=== PATIENT | male | born 1960 | race Caucasian/White ===

== ENCOUNTER → 2016-08-03 | Outpatient (CLI) | payer OTHER ==
[~2016-08-03] MED LIST: ASPI81TA28 PO; CLON0.5T3 PO; DIVA500T59 PO; LEVO150T9 PO; PRLSR20 PO; ZYP20 PO
[2016-08-03 13:18] VITALS: BP 128/87; PULSE 100; TEMP 36.9; O2SAT 96
--- NOTE | 2016-08-03 14:03 | Radiation Oncology Follow-Up ---
Radiation Oncology Follow-Up Date of Visit Aug 03, 2016. (Margo Felipe PA-C) Reason For Visit Six-month follow-up (Margo Felipe PA-C) Radiation Completion Date finished 12-25-2015 (aMrgo Felipe PA-C) Diagnosis (1) Cancer of lower lobe of left lung Status: Resolved Onset Date: 10/21/2015 Histology Subtype: adenocarcinoma Stage: lll (B) Permanent Comment: STAGING: Lung, left lower lobe, adenocarcinoma, [id number], stage IIIB Status post abdominal aortic aneurysm repair follow-up CAT scan 09/29/2015 revealing a lung nodule Status post bronchoscopy and biopsy 10/21/2015 Adenocarcinoma Status post completion of combined radiation and chemotherapy Radiation completed 12/25/2015 received 6000 cGy Last Edited By: Margo Felipe on Jan 04, 2016 15:39 (Margo Felipe PA-C) History of Present Illness Mr. Villela is a 55-year-old gentleman with a previous smoking history who recently underwent a routine imaging study for his abdominal AAA aneurysm. He had a CT scan completed on 09/25/2015 which did show a partially visualized lobulated left lower lobe mass measuring 2.6 cm concerning for malignancy. He subsequently underwent a dedicated CT thorax completed on 10/07/2015 which revealed a 3.1 cm mass in the left lower lobe adjacent to the hilum. Additionally, there was some mediastinal lymphadenopathy and left hilar adenopathy as well. The patient had a PET/CT scan on 10/13/2015 which again confirmed a 3.2 cm mass in the left lower lobe with maximum SUV of 13.5. Additionally, there were multiple bilateral mediastinal and hilar FDG avid lymph nodes with an SUV max of up to 7.1. Otherwise, there was no evidence of any distant metastatic disease. The patient was referred to Dr. Walters who performed a bronchoscopy on 10/21/2015 which revealed paratracheal adenopathy only. Dr. Walters did sample multiple lymph node stations including 4L/4R which came back consistent with adenocarcinoma of the lung. The patient was then referred to Dr. Trav Han for consideration of treatment. Dr. Han has recommended concurrent carboplatin/Taxol chemotherapy and radiation therapy. We are now seeing the patient in consultation. Currently, the patient is doing relatively well overall. He denies any hemoptysis, fevers, chills or night sweats. He states his energy and appetite and weight are all stable. He has no other complaints at this time. Decision was to treat with combined radiation and chemotherapy. Radiation completed 12/25/2015 received 6000 cGy. (Margo Felipe PA-C) Interim History He is been doing well over this past 6 months. He feels his respiratory status is stable. He is trying to exercise to improve his stamina. He is walking at least twice a week. He walks approximately 1/2 mile. He denies any discomfort of the chest. He has no difficulty with swallowing. His appetite is good and his weight is stable. He is followed closely by Dr. Han. He had a recheck PET scan 05/18/2016. This showed increase in extent of left perihilar consolidation with a new area of consolidation along the medial superior right lower lobe with mild metabolic activity. This is favored to represent post radiation changes. No FDG avid mediastinal lymph nodes. Previously noted focal uptake in the mid esophagus and in the proximal anterior abdominal aorta have resolved. He denies any difficulty with cough and congestion. (Margo Felipe PA-C) Allergies Coded Allergies: Ezetimibe (Verified Allergy, Mild, Unknown , 10/29/15) Simvastatin (Verified Allergy, Mild, Unknown , 10/29/15) Home Medications Scheduled Aspirin (Aspirin Ec), 81 MG PO DAILY Clonazepam (Klonopin), 0.5 MG PO DAILY Divalproex Sodium (Depakote), 1 TAB PO HS Divalproex Sodium (Depakote), 250 MG PO DAILY Levothyroxine Sodium (Levothyroxine Sodium), 1 TAB PO DAILY Olanzapine (Zyprexa), 20 MG PO HS Omeprazole (Prilosec), 20 MG PO DAILY Review of Systems Gastrointestinal: Symptoms: WNL Oral: Symptoms: No Problems Other Oral Symptoms: " burning in the esophagus " Respiratory: Symptoms: Moist Cough, SOB With Exertion Respiratory Comments: OCC DRY COUGH, DENIES SOB Other Respiratory: " I quit smoking " Urinary: Symptoms: WNL Skin: Symptoms: No Problems (Margo Felipe PA-C) Physical Exam Vital Signs Date Time Temp Pulse Resp B/P (MAP) Pulse Ox O2 Delivery O2 Flow Rate FiO2 08/03/16 13:18 36.9 100 20 128/87 96 Pain: Side: Bilateral Patient Pain Scale: 0 - 10 Initial Pain Intensity: 0.0 Fatigue: None General Appearance: no apparent distress Eyes: normal inspection, EOMI ENT: normal ENT inspection, hearing grossly normal Neck: no adenopathy, thyroid normal Respiratory/Chest: lungs clear, no respiratory distress, no accessory muscle use Cardiovascular: regular rate, rhythm, no gallop, no murmur Extremities: no pedal edema Neurologic/Psychiatric: no motor/sensory deficits, alert, normal mood/affect Skin: warm/dry (Margo Felipe PA-C) Additional Studies PET scan as reviewed above. Performed on 05/18/2016. (Margo Felipe PA-C) Assessment & Plan Plan: Patient was seen and examined by Dr. Mcknight. He will continue his current exercise program. He'll be following up with Dr. Damian in September. Recheck scanning per Dr. Han. We asked him to return to our office in February 2017. He may call if he has any questions or concerns in the interim. (Margo Felipe PA-C) I agree with note created by Margo Felipe PA-C. I reviewed the patient's chart and information with her. I have examined and evaluated the patient. I reviewed relevant clinical information and answered the patient's and/or family' s questions. (Veeral. Mcknight MD) Total Time In Follow-Up I spent 20 minutes speaking to the patient and performing examination. I spent 15 minutes reviewing information in completing this note. (Margo Felipe PA-C) I spent 15 minutes examining and counseling the patient. (Veeral. Mcknight MD) Copy To Michelet Walters M.D.; Ben Watkins D.O.; Trav Han M.D.
== END | disposition home or self-care (01) ==
LOC: C.ONC 13:08
PROVIDERS: ATTEND Physician Assistant Medical
DX: Z08 Encounter for follow-up examination after completed treatment for malignant neoplasm (principal); Z92.3 Personal history of irradiation; Z85.118 Personal history of other malignant neoplasm of bronchus and lung

== ENCOUNTER → 2017-03-08 | Outpatient (CLI) | payer OTHER ==
[2016-08-03 13:18] VITALS: BP 128/87; PULSE 100
[2017-03-08 12:59] VITALS: BP 117/82; PULSE 103; TEMP 36.9; O2SAT 95
--- NOTE | 2017-03-08 17:17 | Radiation Oncology Follow-Up ---
Radiation Oncology Follow-Up Date of Visit Mar 08, 2017. Reason For Visit 6 month follow-up Radiation Completion Date 12/25/15 Diagnosis (1) Cancer of lower lobe of left lung Status: Chronic Onset Date: 10/21/2015 Permanent Comment: STAGING: Lung, left lower lobe, adenocarcinoma, [id number], stage IIIB Status post abdominal aortic aneurysm repair follow-up CAT scan 09/29/2015 revealing a lung nodule Status post bronchoscopy and biopsy 10/21/2015 Adenocarcinoma Status post completion of combined radiation and chemotherapy Radiation completed 12/25/2015 received 6000 cGy Suspicion of recurrence in the left perihilar area Status post palliative chemotherapy with Taxol and carboplatin Last Edited By: Margo Felipe on Mar 08, 2017 17:11 History of Present Illness Mr. Villela has a previous smoking history who recently underwent a routine imaging study for his abdominal AAA aneurysm. He had a CT scan completed on which did show a partially visualized lobulated left lower lobe mass measuring 2.6 cm concerning for malignancy. He subsequently underwent a dedicated CT thorax completed on 10/07/2015 which revealed a 3.1 cm mass in the left lower lobe adjacent to the hilum. Additionally, there was some mediastinal lymphadenopathy and left hilar adenopathy as well. The patient had a PET/CT scan on 10/13/2015 which again confirmed a 3.2 cm mass in the left lower lobe with maximum SUV of 13.5. Additionally, there were multiple bilateral mediastinal and hilar FDG avid lymph nodes with an SUV max of up to 7.1. Otherwise, there was no evidence of any distant metastatic disease. The patient was referred to Dr. Walters who performed a bronchoscopy on 10/21/2015 which revealed paratracheal adenopathy only. Dr. Walters did sample multiple lymph node stations including 4L/4R which came back consistent with adenocarcinoma of the lung. The patient was then referred to Dr. Trav Han for consideration of treatment. Dr. Han has recommended concurrent carboplatin/Taxol chemotherapy and radiation therapy. We are now seeing the patient in consultation. Currently, the patient is doing relatively well overall. He denies any hemoptysis, fevers, chills or night sweats. He states his energy and appetite and weight are all stable. He has no other complaints at this time. Decision was to treat with combined radiation and chemotherapy. Radiation completed 12/25/2015 received 6000 cGy. Interim History He denies any difficulty with his respiratory status. No problems with shortness of breath or cough. He denies dysphagia. Following the completion of the combined radiation and chemotherapy he had a recheck scan which revealed possible progression in the left perihilar region. He then underwent palliative chemotherapy with Taxol and carboplatin. This was given every 3 weeks. He tolerated this well. His only residual outcome is alopecia. He has had no issues with nausea or vomiting. There is been no problems with neuropathy. He had a recheck CT scan this past Monday. The results are currently pending. Allergies Coded Allergies: Ezetimibe (Verified Allergy, Mild, Unknown , 10/29/15) Simvastatin (Verified Allergy, Mild, Unknown , 10/29/15) Home Medications Scheduled Aspirin (Aspirin Ec), 81 MG PO DAILY Clonazepam (Klonopin), 0.5 MG PO DAILY Divalproex Sodium (Depakote), 1 TAB PO HS Divalproex Sodium (Depakote), 250 MG PO DAILY Levothyroxine Sodium (Levothyroxine Sodium), 1 TAB PO DAILY Olanzapine (Zyprexa), 20 MG PO HS Omeprazole (Prilosec), 20 MG PO DAILY Review of Systems Gastrointestinal: Symptoms: WNL Oral: Symptoms: No Problems Other Oral Symptoms: " burning in the esophagus " Respiratory: Symptoms: WNL Respiratory Comments: OCC DRY COUGH, DENIES SOB Other Respiratory: " I quit smoking " Urinary: Symptoms: WNL Skin: Symptoms: No Problems Physical Exam Vital Signs Date Time Temp Pulse Resp B/P (MAP) Pulse Ox O2 Delivery O2 Flow Rate FiO2 03/08/17 12:59 36.9 103 16 117/82 95 Fatigue: None General Appearance: no apparent distress, + pertinent finding (alopecia) Eyes: normal inspection, EOMI ENT: normal ENT inspection, hearing grossly normal Neck: no adenopathy, thyroid normal Respiratory/Chest: no respiratory distress, no accessory muscle use, + decreased breath sounds, + wheezing (very mild wheeze in left lung field.) Cardiovascular: regular rate, rhythm, no gallop, no murmur Neurologic/Psychiatric: no motor/sensory deficits, alert, normal mood/affect Skin: warm/dry Pain Management Patient Reports Pain: No Side: Bilateral Patient Preferred Pain Scale: 0 - 10 Initial Pain Intensity: 0.0 Pain Management Plan He denies pain therefore requires no pain management. Laboratory Laboratory Results: not applicable Pathology Pathology Results: not applicable Imaging Imaging Studies: pending Assessment & Plan Plan: He was seen and examined by Dr. Mcknight. We will obtain a copy of the CT results when complete. Continue follow-up with medical oncology. We asked him to return to our office in 1 year. He may call if he has any questions or concerns in the interim. Assessment & Plan (Attending) ADDENDUM: I agree with note created by Margo Felipe PA-C. I reviewed the patient's chart and information with her. I have examined and evaluated the patient. I reviewed relevant clinical information and answered the patient's and /or family's questions. COMMUNITY HEALTH NURSE SUPERVISOR Total Time In Follow-Up I spent 20 minutes speaking to the patient performing examination. I spent 15 minutes reviewing the information and completing this note. Total Time (Attending) In Follow-Up I spent 15 minutes examining and counseling the patient. COMMUNITY HEALTH NURSE SUPERVISOR Copy To Michelet Walters M.D.; Hali Schulte MD; Ben Watkins D.O.
== END | disposition home or self-care (01) ==
LOC: C.ONC 12:34
PROVIDERS: ATTEND Physician Assistant Medical
DX: Z08 Encounter for follow-up examination after completed treatment for malignant neoplasm (principal); Z92.3 Personal history of irradiation; Z85.118 Personal history of other malignant neoplasm of bronchus and lung

== ENCOUNTER 2017-04-04 07:49 | Day surgery (SDC) | payer OTHER ==
[2017-04-03 08:54] VITALS: BMI 37.0
--- NOTE | 2017-04-03 09:26 | PAT Medication Instructions ---
Service Date Apr 03, 2017. Current Home Medication List Aspirin (Aspirin Ec), 81 MG PO QAM Clonazepam (Klonopin), 0.5 MG PO QAM Divalproex Sodium (Depakote), 500 MG PO HS Divalproex Sodium (Depakote), 250 MG PO QAM Levothyroxine Sodium (Levothyroxine Sodium), 1 TAB PO QAM Olanzapine (Zyprexa), 20 MG PO HS Omeprazole (Prilosec), 20 MG PO HS Medication Instructions For Your Scheduled Surgery - Hold the following medications per your surgeon's instructions: Aspirin (Aspirin Ec), 81 MG PO QAM - Take the following medications the morning of surgery with a sip of water: Levothyroxine Sodium (Levothyroxine Sodium), 1 TAB PO QAM Divalproex Sodium (Depakote), 250 MG PO QAM Clonazepam (Klonopin), 0.5 MG PO QAM - Take the following medications as scheduled the night before surgery: Olanzapine (Zyprexa), 20 MG PO HS Omeprazole (Prilosec), 20 MG PO HS Divalproex Sodium (Depakote), 500 MG PO HS If you have any questions please call us at [phone] or [phone] or [phone]
[2017-04-03 11:18] LABS: PTT PATIENT 34.5 SECONDS (21.0-31.0)
[~2017-04-04] VITALS: Ht 180.3 cm; Wt 122.0 kg
[~2017-04-04 07:49] MED LIST changes: +ATROPINE SULFATE 0.1 MG/ML 5ML SYR IV PRN; +EpHEDrine SULFATE INJ 50 MG/ML AMP IV PRN; +FENTANYL CITRATE INJ 50 MCG/1 ML 2 ML VIAL IV PRN; +HYDROmorphone INJ 1 MG/ML SYR IV PRN; +LABETALOL HCL IV 5 MG/ML 20ML IV PRN; +LACTATED RINGER'S 1000ML 1,000 ML IV SCH; +ONDANSETRON INJ 2 MG/ML 2 ML VIAL IV PRN; +PHENYLEPHRINE 100MCG/ML 5ML SYR IV PRN; +PROMETHAZINE HCL INJ 12.5 MG in SODIUM CHLORIDE 0.9% 50ML 50 ML IV PRN
--- NOTE | 2017-04-04 08:41 | History and Physical ---
History & Physical Date of Service Apr 04, 2017. History & Physical 56-yo male presents with history of NSCLCA IIIB present with a hilar PET avid mass. Images personally reviewed by myself and Dr. Whiting. Options discussed with the patient and his sister and recommend moving forward with bronchoscopy + EBUS for further diagnostics. Patient expressed understanding and is agreeable. History of Present Illness 56-year-old male presents the office for new patient evaluation with the question of recurrent left lower lobe lung cancer. Prior records reviewed. PMHx includes: History of bus-xsknk-lyod lung carcinoma stage IIIB, CKD 3, hypothyroid, AAA status post repair, history of schizoaffective disorder, GERD, and allergic rhinitis. He is a former smoker smoking 1-3 packs per day for approximately 35 years quit in the summer of 2016. 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 X1 episode of inhalation of asbestos. Patient denies any history of childhood asthma or allergies. He denies any history of pneumonia, frequent hospitalization for respiratory failure, history of DVT or DVT. He states that he was diagnosed with asthma many years ago. Although he states he has never been on any inhalers in the past and is unsure of any chronic symptoms. He denies any symptoms of daily shortness of breath wheeze chest pain or pleuritic pain. Patient underwent FNA 4R, 4L with Dr. Walters is in the summer of 2015 after LLL mass found incidentailly on CTA for AAA. Tissue consistent with adenocarconima, EGFR negative. He initially followed with Dr Adams and underwent chemotherapy x 2 (carboplatin + taxol - last 12/2016) and radiation (end 11/2015). PET-CT 02/08/2017: Volume loss with traction bronchiectasis and small opacity in the paramediastinal right upper lobe with consolidation in the left lower lobe compatible with radiation fibrosis. There is persistent focal metabolic activity within the left lower lobe -per report. CT chest 03/09/2017: Left infrahilar extension of mass roughly measuring 3.7 x 3.1 centimeter correlating with increased metabolic activity on prior PET-CT. Small left pleural effusion-new since 02/08/2017: Post radiation changes in the paramediastinal soft tissues. Following above imaging, he was referred by his new oncologist to our office for further diagnostics. On exam/interview today he denies any symptoms of dyspnea, chest pain, or wheeze. He states his weight has been fluctuant. He does report chronic daily cough present for approximately 1 year without any productivity or hemoptysis. He states occasionally he will feel as though food gets stuck in his throat however since beginning a proton pump inhibitor this it has improved significantly. Review of Systems Constitutional: recent weight gain and recent weight loss, but no fever, not feeling poorly, no chills and not feeling tired. ENT: negative. Cardiovascular: no chest pain and no palpitations. Respiratory: cough and shortness of breath during exertion, but as noted in HPI , no shortness of breath, no orthopnea and no wheezing. Gastrointestinal: heartburn, but as noted in HPI. Integumentary: negative. Hematologic/Lymphatic: negative, no tendency for easy bleeding and no tendency for easy bruising. Active Problems 1. Allergic rhinitis 2. Chronic kidney disease, stage 3 3. History of Current tobacco use 4. GERD (gastroesophageal reflux disease) 5. H/O abdominal aortic aneurysm 6. Hyperlipidemia 7. Hypothyroid 8. Lung mass 9. Lymphadenopathy 10. Schizoaffective disorder Surgical History 1. History of Abdominal Aortic Aneurysm Repair For Dilation Or Occlusion 2. History of Tonsillectomy Social History History of Current tobacco use (Z72.0) Current Meds 1. Aspirin 81 MG TABS; TAKE 1 TABLET DAILY; 2. Depakote 250 MG Oral Tablet Delayed Release; TAKE 1 TABLET IN THE MORNING; 3. Depakote 500 MG Oral Tablet Delayed Release; TAKE 1 TABLET AT BEDTIME; 4. KlonoPIN 0.5 MG Oral Tablet; TAKE 1 TABLET IN THE AM & MAY TAKE ANOTHER PILL NEEDED; 5. Levoxyl 100 MCG Oral Tablet; TAKE 1 1/2 TABLET DAILY; 6. OLANZapine 20 MG Oral Tablet; TAKE 1 TABLET AT BEDTIME; 7. Omeprazole 20 MG Oral Capsule Delayed Release; TAKE 1 CAPSULE DAILY; Allergies 1. Zetia TABS 2. Zocor TABS Vitals Vital Signs Recorded: 20Mar2017 10:04AM Blood Pressure: 124 / 76, RUE, Sitting O2 Saturation: 94, RA Weight: 268 lb 3 oz Respiration: 20 Temperature: 98.7 F Heart Rate: 87 Physical Exam Constitutional: Well developed, well nourished obese male. No acute distress. Head: + facial symmetry Eyes: EOMi, PERRLA, no conjunctival injection Mouth: Moist mucous membranes. No erythema, exudate, or post nasal gtt Neck: Trachea midline. No adenopathy or masses Respiratory: Non-labored respirations. Slight extension to expiratory phase. No wheeze, rales or rhonchi. No clubbing or cyanosis. Cardiovascular: RRR, no MRG. +2 radial pulses. <1s capillary refill. Abdomen: soft, active bowel sounds Integumentary: no rashes, or ecchymosis MSK/Extremities: Moving and developed symmetrically. Rt non-pitting edema ( present since prior injury/surgery). No calf tenderness. Neurologic: A&O, data recall in-tact. Appropriate affected
[2017-04-04 08:56] VITALS: BP 129/89; PULSE 92; TEMP 36.7; O2SAT 98; Ht 180.3 cm; Wt 122.0 kg
[2017-04-04 09:20] LABS: HEMATOCRIT 35.8 % (42-52); HEMOGLOBIN 11.6 g/dL (14.0-18.0); MEAN CELL VOLUME 106.9 fL (80-100); MEAN CORPUSCULAR HEMOGLOBIN 34.6 pg (25-34); PLATELET COUNT 150 K/uL (130-400); RED CELL DISTRIBUTION WIDTH SD 54.3 fL (36.4-46.3); WHITE BLOOD COUNT 4.32 K/uL (4.8-10.8)
[2017-04-04] MEDS ORDERED: MIDAZOLAM HCL 1 MG/ML 2ML VIAL ONE (09:56)
[2017-04-04] MEDS ORDERED: FENTANYL CITRATE INJ 50 MCG/1 ML 2 ML VIAL ONE (09:56)
[2017-04-04 10:00] LABS: MEAN CORPUSCULAR HGB CONC 32.4 g/dl (32-36)
[2017-04-04] MEDS ORDERED: ONDANSETRON INJ 2 MG/ML 2 ML VIAL ONE (11:40)
[2017-04-04] MEDS ORDERED: PROPOFOL IV EMULSION 10 MG/ML 20 ML VIAL IV ONE (11:40)
[2017-04-04] MEDS ORDERED: DEXAMETHASONE SOD INJ 4 MG/ML VIAL ONE (11:40)
[2017-04-04] MEDS ORDERED: SUCCINYLCHOLINE CHLORIDE 20 MG/ML 10 ML VIAL IV ONE (11:40)
[2017-04-04] MEDS ORDERED: LIDOCAINE HCL 2% 2 ML VIAL (20MG/ML) ONE (11:40)
[2017-04-04] MEDS ORDERED: PHENYLEPHRINE HCL INJ 10 MG/ML VIAL ONE (11:44)
--- NOTE | 2017-04-04 12:18 | Bronchoscopy Procedure Note ---
Bronchoscopy Procedure Note Procedure: Flexible-Bronchoscopy, EBUS, FNA, BAL Consent: Obtained through the patient placed into the chart Pre-Procedural Dx: Mediastinal adenopathy possible recurrent adenocarcinoma Post-Procedural Dx: Mediastinal adenopathy Analgesia: GETA Sedation: GETA Procedure: The Olympus video bronchoscope and EBUS scope were used for this procedure Initially the flexible bronchoscope was used for evaluation of the airways. The ET tube was notably 6 cm above the level of the marya. Trachea: Visualized portion of the trachea was anatomically within normal limits Marya: Anatomically within normal limits Right bronchial tree: Right mainstem bronchus: Anatomically within normal limits Right upper lobe: Anatomically within normal limits Bronchus intermedius: Anatomically within normal limits Right middle lobe: Anatomically within normal limits Right lower lobe: Anatomically within normal limits Findings: No significant findings noted Left bronchial tree: Left mainstem bronchus: Anatomically within normal limits Left upper lobe: Anatomically within normal limits Lingula: Anatomically within normal limits Left lower lobe: Notable posterior collapse/EDAC Findings: No significant findings noted EBUS/ALBERT: FNA Garett Stations: 7: # of passes 6 11L: # of passes 5 4L: # of passes 3 BAL: Left lower lobe EBL: 1cc Complications: None Follow-up: PACU
--- NOTE | 2017-04-04 12:23 | Discharge Instructions ---
Discharge Instructions Date of Service Apr 04, 2017. Admission Reason for Admission: Lung Mass Discharge Discharge Diagnosis / Problem: mediastinal adenopathy Discharge Goals Goal(s): Diagnostic testing Activity Recommendations Activity Limitations: resume your previous activity . Instructions / Follow-Up Instructions / Follow-Up Follow-up in [facility] pulmonary clinic Current Hospital Diet Patient's current hospital diet: Discharge Diet Recommended Diet: Regular Diet Procedures Procedures Performed: Endobronchial Ultrasound Guided Bronchoscopy, fine-needle aspiration and bronchial lavage Pending Studies Studies pending at discharge: no Medical Emergencies . Who to Call and When: Medical Emergencies: If at any time you feel your situation is an emergency, please call 911 immediately. . Non-Emergent Contact Non-Emergency issues call your: Director Patient Financial Services . . "Provider Documentation" section prepared by Bala Whiting. . VTE Core Measure Inpt VTE Proph given/why not?: Other Anticoagulation (aspirin)
--- NOTE | 2017-04-04 13:16 | Anesthesiology Progress Note ---
Anesthesia Post Op Note Date & Time Apr 04, 2017 at 13:16 Vital Signs Pain Intensity: 0 Vital Signs Past 12 Hours Date Time Temp Pulse Resp B/P (MAP) Pulse Ox O2 Delivery O2 Flow Rate FiO2 04/04/17 13:10 90 16 147/96 94 Room Air 04/04/17 13:00 88 21 142/96 98 Oxymask 10 04/04/17 12:50 92 21 151/89 98 Oxymask 10 04/04/17 12:41 36.1 97 21 148/98 96 Oxymask 10 04/04/17 08:56 36.7 92 20 129/89 (102) 98 Room Air Notes Mental Status: alert / awake / arousable, participated in evaluation Pt Amnestic to Procedure: Yes Nausea / Vomiting: adequately controlled Pain: adequately controlled Airway Patency, RR, SpO2: stable & adequate BP & HR: stable & adequate Hydration State: stable & adequate Anesthetic Complications: no major complications apparent
[2017-04-04 13:25] VITALS: BP 129/84; PULSE 88; TEMP 37.1; O2SAT 94
[2017-04-04 13:55] VITALS: BP 118/83; PULSE 89; TEMP 37.1; O2SAT 94
== END 2017-04-04 14:30 | disposition home or self-care (01) ==
LOC: C.ACU 07:49
PROVIDERS: ATTEND Internal Medicine Critical Care Medicine
DX: R59.1 Generalized enlarged lymph nodes (principal); Z85.118 Personal history of other malignant neoplasm of bronchus and lung; J45.909 Unspecified asthma, uncomplicated; I73.9 Peripheral vascular disease, unspecified; K21.9 Gastro-esophageal reflux disease without esophagitis; E03.9 Hypothyroidism, unspecified; R91.8 Other nonspecific abnormal finding of lung field; N18.3 Chronic kidney disease, stage 3 (moderate); F25.9 Schizoaffective disorder, unspecified; E78.5 Hyperlipidemia, unspecified; Z79.82 Long term (current) use of aspirin; Z87.891 Personal history of nicotine dependence

== ENCOUNTER 2017-07-18 12:45 | Emergency (ER) | payer OTHER ==
[~2017-07-18] VITALS: Ht 180.3 cm; Wt 115.0 kg
[~2017-07-18 12:45] MED LIST changes: -ATROPINE SULFATE 0.1 MG/ML 5ML SYR IV PRN; -EpHEDrine SULFATE INJ 50 MG/ML AMP IV PRN; -FENTANYL CITRATE INJ 50 MCG/1 ML 2 ML VIAL IV PRN; -HYDROmorphone INJ 1 MG/ML SYR IV PRN; -LABETALOL HCL IV 5 MG/ML 20ML IV PRN; -LACTATED RINGER'S 1000ML 1,000 ML IV SCH; -ONDANSETRON INJ 2 MG/ML 2 ML VIAL IV PRN; -PHENYLEPHRINE 100MCG/ML 5ML SYR IV PRN; -PROMETHAZINE HCL INJ 12.5 MG in SODIUM CHLORIDE 0.9% 50ML 50 ML IV PRN
[2017-07-18 12:57] VITALS: Ht 180.3 cm; Wt 115.0 kg
[2017-07-18] MEDS ORDERED: BUSP15TA70 PO (13:25)
[2017-07-18] MEDS ORDERED: SODIUM CHLORIDE 0.9% 1000ML 1,000 ML IV STA ×2 (13:39→18:07)
[2017-07-18 14:04] LABS: BASO % 0.2 %; BASO ABS # 0.01 K/uL (0-0.2); EOS % 1.3 %; EOS ABS # 0.06 K/uL (0-0.5); HEMATOCRIT 39.9 % (42-52); HEMOGLOBIN 13.4 g/dL (14.0-18.0); IG# 0.03 K/uL (0.00-0.02); LYMPH % 14.8 %; LYMPH ABS # 0.71 K/uL (1.2-3.4); MEAN CELL VOLUME 94.3 fL (80-100); MEAN CORPUSCULAR HEMOGLOBIN 31.7 pg (25-34); MEAN CORPUSCULAR HGB CONC 33.6 g/dl (32-36); MEAN PLATELET VOLUME 9.3 fL (7.4-10.4); MONO % 14.8 %; MONO ABS # 0.71 K/uL (0.11-0.59); NEUT % 68.3 %; NEUT ABS # 3.27 K/uL (1.4-6.5); PLATELET COUNT 183 K/uL (130-400); RED CELL DISTRIBUTION WIDTH CV 13.7 % (11.5-14.5); RED CELL DISTRIBUTION WIDTH SD 46.8 fL (36.4-46.3); WHITE BLOOD COUNT 4.79 K/uL (4.8-10.8)
--- NOTE | 2017-07-18 14:08 | DIAGNOSTIC IMAGING REPORT ---
CHEST ONE VIEW PORTABLE HISTORY: 57 years-old Male ABDOMINAL PAIN/GI acute generalized abdominal pain with dizziness COMPARISON: PET CT 02/08/2017, CT chest 03/06/2017 TECHNIQUE: Portable AP view of the chest FINDINGS: Cardiac silhouette is within normal limits in size. Patient is slightly rotated to the left. No pneumothorax or large pleural effusion. Prominence of the left hilum likely correlates with previously noted left hilar mass. Linear subsegmental left perihilar and left basilar opacities likely suggest posttreatment related changes. Bones of the chest appear grossly intact. IMPRESSION: No acute process. The above report was generated using voice recognition software. It may contain grammatical, syntax or spelling errors. Electronically signed by: Mehrdad Amaya M.D. 07/18/2017 2:06 PM Dictated Date/Time: 07/18/2017 2:04 PM
[2017-07-18 14:28] LABS: ALBUMIN 3.2 gm/dl (3.4-5.0); ALKALINE PHOSPHATASE 93 U/L (45-117); ALT/SGPT 24 U/L (12-78); AST/SGOT 16 U/L (15-37); BLOOD UREA NITROGEN 19 mg/dl (7-18); CALCIUM 9.2 mg/dl (8.5-10.1); CARBON DIOXIDE 27 mmol/L (21-32); CREATININE 1.55 mg/dl (0.60-1.40); GLUCOSE 95 mg/dl (70-99); LIPASE 86 U/L (73-393); PHOSPHORUS 2.7 mg/dl (2.5-4.9); POTASSIUM 4.1 mmol/L (3.5-5.1); SODIUM 139 mmol/L (136-145); TOTAL PROTEIN 7.4 gm/dl (6.4-8.2)
--- NOTE | 2017-07-18 14:28 | DIAGNOSTIC IMAGING REPORT ---
HEAD CT NONCONTRAST CT DOSE: 812.17 mGycm HISTORY: dysarthria TECHNIQUE: Multiaxial CT images of the head were performed without the use of intravenous contrast. Automated exposure control was utilized for this study. A dose lowering technique was utilized adhering to the principles of ALARA. Comparison: None. Findings: There is a 1.5 cm retention cyst within the right maxillary sinus. The mastoid air cells are clear. The calvarium and skull base are intact. There is a 3.4 cm mass within the right cerebellar hemisphere with surrounding vasogenic edema. This results in up to 75% effacement of the fourth ventricle. No hydrocephalus at this time. This also results in mild herniation of the right cerebellar tonsil into the foramen magnum. There is mass effect along the right side of the robinson. No acute infarct or hemorrhage identified. Impression: There is a 3.4 cm mass within the right cerebellar hemisphere resulting in up to 75% effacement of the fourth ventricle, mass effect along the right side of the robinson, and mild herniation of the right cerebellar tonsil. Given the patient's history of lung cancer this is highly suspicious for a metastatic lesion. Neurosurgical consultation is recommended. These findings were discussed with Dr. carlson at 2:26 PM on 07/18/2017. Electronically signed by: Huber Guardado M.D. 07/18/2017 2:27 PM Dictated Date/Time: 07/18/2017 2:15 PM
[2017-07-18] MEDS ORDERED: DEXAMETHASONE **PF** INJ 10 MG/ML VIAL IV ONE (14:30)
--- NOTE | 2017-07-18 15:49 | EMERGENCY ROOM VISIT NOTE ---
History Report prepared by Harper: Sg Sena Under the Supervision of: Dr. Kailash Carlson M.D. First contact with patient: 13:35 Chief Complaint: DIZZY Stated Complaint: REACTION TO NEW MEDICATION, DIZZY, SLURRED SPEECH Nursing Triage Summary: Patient presents to ED with complaints of dizziness & weakness for the past 1.5 weeks. pt reports his psychiatrist changed his medication approx 1 month ago and he had problems like this when his medications were changed in the past. PT is exhibiting slurred & repetitive speech. A&Ox4. PT currently taking Buspar. History of Present Illness The patient is a 57 year old male who presents to the Emergency Room with complaints of worsening speech slur beginning 1.5 weeks ago. He also complains of difficulty finding words, generalized weakness (making it difficulty to walk) , right-sided visual changes and dizziness. The patient's visual changes began three days ago. He describes the visual changes as "it just appears crooked". He has a history of Bipolar disorder, schizoaffective type. The patient had his psychiatric medications changed one month ago, and feels that his symptoms are likely related to this. He was on Clonazepam and was switched to Hydroxyzine, and then switched to BuSpar. He is also on Zyprexa, Depakote and Levothyroxine. He notes that speech slur is a listed side effect of BuSpar. The patient denies feeling confused. He denies fevers, chills, new cough, or congestion. He has a prior history of lung cancer. Source of History: patient Onset: 1.5 weeks ago Quality: other (speech slur) Timing: worsening Associated Symptoms: + weakness (generalized), No fevers, No chills, No cough (new) Note: The patient also complains of difficulty finding words, right-sided visual changes, and dizziness. Negative: confusion, congestion. Review of Systems See HPI for pertinent positives and negatives. A total of ten systems were reviewed and were otherwise negative. Past Medical & Surgical Medical Problems: (1) Cancer of lower lobe of left lung Family History No pertinent family history stated. Social History Smoking Status: Former Smoker Housing Status: lives alone Current/Historical Medications Scheduled Buspirone Hcl (Buspar), 15 MG PO BID Divalproex Sodium (Depakote), 500 MG PO HS Divalproex Sodium (Depakote), 250 MG PO QAM Levothyroxine Sodium (Levothyroxine Sodium), 1 TAB PO QAM Olanzapine (Zyprexa), 20 MG PO HS Omeprazole (Prilosec), 20 MG PO HS Allergies Coded Allergies: Ezetimibe (Verified Allergy, Mild, Unknown , 07/18/17) Simvastatin (Verified Allergy, Mild, Unknown , 07/18/17) Physical Exam Vital Signs Date Time Temp Pulse Resp B/P (MAP) Pulse Ox O2 Delivery O2 Flow Rate FiO2 07/18/17 19:41 36.7 94 14 168/86 93 07/18/17 19:02 94 14 93 07/18/17 17:41 89 18 168/86 96 Room Air 07/18/17 16:23 86 16 142/89 97 Room Air 07/18/17 14:27 75 18 142/102 99 Room Air 07/18/17 13:19 90 07/18/17 12:57 36.7 100 20 133/82 95 Room Air Physical Exam GENERAL: Awake, alert, relatively well-appearing, in no distress HENT: Normocephalic, atraumatic. Oropharynx unremarkable. EYES: Normal conjunctiva. Sclera non-icteric. NECK: Supple. No nuchal rigidity. FROM. No JVD. RESPIRATORY: Clear to auscultation. CARDIAC: Regular rate, normal rhythm. Extremities warm and well perfused. Pulses equal. ABDOMEN: Soft, non-distended. No tenderness to palpation. No rebound or guarding. No masses. RECTAL: Deferred. MUSCULOSKELETAL: Chest examination reveals no tenderness. The back is symmetrical on inspection without obvious abnormality. There is no CVA tenderness to palpation. No joint edema. LOWER EXTREMITIES: Calves are equal size bilaterally and non-tender. No edema. No discoloration. NEURO: Normal sensorium. Mild dysarthria and expressive aphasia. Mild bilateral dysmetria and dysdiadochokinesia. SKIN: No rash or jaundice noted. Medical Decision & Procedures ER Provider Diagnostic Interpretation: Radiology results as stated below per my review and radiologist interpretation: HEAD CT NONCONTRAST Findings: There is a 1.5 cm retention cyst within the right maxillary sinus. The mastoid air cells are clear. The calvarium and skull base are intact. There is a 3.4 cm mass within the right cerebellar hemisphere with surrounding vasogenic edema. This results in up to 75% effacement of the fourth ventricle. No hydrocephalus at this time. This also results in mild herniation of the right cerebellar tonsil into the foramen magnum. There is mass effect along the right side of the robinson. No acute infarct or hemorrhage identified. Impression: There is a 3.4 cm mass within the right cerebellar hemisphere resulting in up to 75% effacement of the fourth ventricle, mass effect along the right side of the robinson, and mild herniation of the right cerebellar tonsil. Given the patient's history of lung cancer this is highly suspicious for a metastatic lesion. Neurosurgical consultation is recommended. These findings were discussed with Dr. carlson at 2:26 PM on 07/18/2017. Electronically signed by: Huber Guardado M.D. 07/18/2017 2:27 PM CHEST ONE VIEW PORTABLE FINDINGS: Cardiac silhouette is within normal limits in size. Patient is slightly rotated to the left. No pneumothorax or large pleural effusion. Prominence of the left hilum likely correlates with previously noted left hilar mass. Linear subsegmental left perihilar and left basilar opacities likely suggest posttreatment related changes. Bones of the chest appear grossly intact. IMPRESSION: No acute process. The above report was generated using voice recognition software. It may contain grammatical, syntax or spelling errors. Electronically signed by: Mehrdad Amaya M.D. 07/18/2017 2:06 PM Laboratory Results 07/18/17 13:50 Red Blood Count 4.23, Mean Corpuscular Volume 94.3, Mean Corpuscular Hemoglobin 31.7, Mean Corpuscular Hemoglobin Concent 33.6, Mean Platelet Volume 9.3, Neutrophils (%) (Auto) 68.3, Lymphocytes (%) (Auto) 14.8, Monocytes (%) (Auto) 14.8, Eosinophils (%) (Auto) 1.3, Basophils (%) (Auto) 0.2, Neutrophils # (Auto ) 3.27, Lymphocytes # (Auto) 0.71, Monocytes # (Auto) 0.71, Eosinophils # (Auto ) 0.06, Basophils # (Auto) 0.01 07/18/17 13:50 Test 07/18/17 13:50 White Blood Count 4.79 K/uL (4.8-10.8) Red Blood Count 4.23 M/uL (4.7-6.1) Hemoglobin 13.4 g/dL (14.0-18.0) Hematocrit 39.9 % (42-52) Mean Corpuscular Volume 94.3 fL (80-100) Mean Corpuscular Hemoglobin 31.7 pg (25-34) Mean Corpuscular Hemoglobin Concent 33.6 g/dl (32-36) Platelet Count 183 K/uL (130-400) Mean Platelet Volume 9.3 fL (7.4-10.4) Neutrophils (%) (Auto) 68.3 % Lymphocytes (%) (Auto) 14.8 % Monocytes (%) (Auto) 14.8 % Eosinophils (%) (Auto) 1.3 % Basophils (%) (Auto) 0.2 % Neutrophils # (Auto) 3.27 K/uL (1.4-6.5) Lymphocytes # (Auto) 0.71 K/uL (1.2-3.4) Monocytes # (Auto) 0.71 K/uL (0.11-0.59) Eosinophils # (Auto) 0.06 K/uL (0-0.5) Basophils # (Auto) 0.01 K/uL (0-0.2) RDW Standard Deviation 46.8 fL (36.4-46.3) RDW Coefficient of Variation 13.7 % (11.5-14.5) Immature Granulocyte % (Auto) 0.6 % Immature Granulocyte # (Auto) 0.03 K/uL (0.00-0.02) Anion Gap 6.0 mmol/L (3-11) Est Creatinine Clear Calc Drug Dose 67.0 ml/min Estimated GFR () 56.4 Estimated GFR (Non- 48.6 BUN/Creatinine Ratio 12.1 (10-20) Calcium Level 9.2 mg/dl (8.5-10.1) Phosphorus Level 2.7 mg/dl (2.5-4.9) Magnesium Level 2.1 mg/dl (1.8-2.4) Total Bilirubin 0.3 mg/dl (0.2-1) Direct Bilirubin < 0.1 mg/dl (0-0.2) Aspartate Amino Transf (AST/SGOT) 16 U/L (15-37) Alanine Aminotransferase (ALT/SGPT) 24 U/L (12-78) Alkaline Phosphatase 93 U/L (45-117) Ammonia < 10.0 umol/L (11-32) Total Protein 7.4 gm/dl (6.4-8.2) Albumin 3.2 gm/dl (3.4-5.0) Lipase 86 U/L (73-393) Thyroid Stimulating Hormone (TSH) 1.580 uIu/ml (0.300-4.500) Valproic Acid (Depakene) Level 46 mcg/ml (50-100) Laboratory results reviewed by me Medications Administered Medications (Trade) Dose Ordered Sig/Maximino Route Start Time Stop Time Status Last Admin Dose Admin Sodium Chloride 1,000 ml @ 999 mls/hr Q1H1M STAT IV 07/18/17 13:39 07/18/17 14:39 DC 07/18/17 13:58 999 MLS/HR Dexamethasone Sodium Phosphate (Dexamethasone Inj Pf) 10 mg NOW ONCE IV 07/18/17 14:30 07/18/17 14:31 DC 07/18/17 15:04 10 MG Sodium Chloride 1,000 ml @ 125 mls/hr Q8H STAT IV 07/18/17 18:07 07/18/17 21:56 DC 07/18/17 18:30 125 MLS/HR ECG Per My Interpretation Indication: other (neurologic symptoms) Rate (beats per minute): 90 Rhythm: normal sinus Findings: other (Normal axis. No ST elevations/depressions. ) ED Course 1337: The patient was evaluated in room C5. A complete history and physical exam was performed. 1339: Ordered Sodium Chloride 1000 ml @ 999 mls/hr IV. 1430: Ordered Dexamethasone 10 mg IV. 1505: Upon reexamination, the patient was resting. I discussed the test results (including head CT) and treatment plan with him. The patient agreed to transfer to [facility]. 1530: The patient has been accepted for transfer to [facility]. He will be transferred by ground. Medical Decision I reviewed the patient's past medical history, medications, and the nursing notes as described above. Differential diagnosis: Etiologies such as metabolic, infection, hypo/hyperglycemia, electrolyte abnormalities, cardiac sources, intracerebral event, toxicologic, neurologic, as well as others were entertained. The patient is a 57-year-old gentleman with a past medical history of prior lung adenocacarcinoma, schizoaffective/bipolar disorder on Depakote, Buspirone, Zyprexa and Hypothyroidism on Synthroid who presents to the emergency department with worsening difficulty with speech and coordination since having medication changes which included discontinuing his Klonopin and hydroxyzine and exchanged for beginning buspirone per hpi. On arrival the patient is no acute distress, afebrile stable vital signs. On exam he has notable dysarthria and mild expressive aphasia. On exam the patient has mild impairment with finger to nose, alternating palms, [id number]. CT head performed demonstrates a 3.7 cm right cerebellar mass with mass-effect and vasogenic edema given the patient's prior lung cancer suspicious for metastases. Findings d/w patient. Reports "negative PET scan" 6 months ago and so mass must have developed since then. Labs otherwise unremarkable. Creatinine is 1.5 however with no prior values for comparison. Case was discussed with [facility] neurosurgery, Dr. Jacques resident physician under attending Dr. Raines, and given the patient's worsening neurologic symptoms including his ataxia with difficulty with ambulation reasonable to transfer the patient for further workup including evaluation/staging of his cancer and possible additional metastases. No need for prophylactic AEDs at this time. Recommends admission to hospital medicine and they will provide consultation. Patient was accepted by Dr. Coe, to SCU bed. She will be transported by [facility]. Of note, patient was given 10 mg of dexamethasone with moderate improvement in his symptoms. Medication Reconcilliation Current Medication List: was personally reviewed by ok Blood Pressure Screening Patient's blood pressure: Elevated blood pressure Blood pressure disposition: Elevated BP felt to be situational Consults Time Called: 150 Consulting Physician: Dr. Jacques - [facility] Neurosurgery Returned Call: [phone] Jacques (resident physician, on behalf of Dr. Raines who was in surgery). The patient will be evaluated in [facility]. Additional Consults: Time Called: 1528 Consulted Physician: Dr. Coe - [facility] Hospitalist Returned Call: [phone] Additional Comments: I discussed the patient with Dr. Coe. The patient will be transferred to [facility] by ground for direct admission. Impression Primary Impression: Cerebellar mass Critical Care I have personally spent greater than 35 minutes of critical care time in the direct management of this patient. This includes bedside care, interpretation of diagnostic studies, and testing, discussion with consultants, patient, and family members, and other required patient management activities. This 35 minutes is in excess of all separately billable procedures. Scribe Attestation The scribe's documentation has been prepared under my direction and personally reviewed by me in its entirety. I confirm that the note above accurately reflects all work, treatment, procedures, and medical decision making performed by me. Departure Information Dispostion Transfer Acute Care Facility ([facility] by ground) Referrals Ben Watkins D.O. (PCP) Patient Instructions My [facility]
[2017-07-18] MEDS ORDERED: GADAVIST IV PRN (17:45)
--- NOTE | 2017-07-18 17:50 | DIAGNOSTIC IMAGING REPORT ---
BRAIN COMBO CLINICAL HISTORY: 57 years-old Male presenting with Evaluate Cerebellar mass, dizziness, slurred speech, history of lung cancer since 2016. TECHNIQUE: Multisequence, multiplanar MR imaging of the brain was performed before and after the administration of intravenous contrast. IV contrast: 8.5 mL of Gadavist. COMPARISON: Noncontrast CT from earlier the same day. FINDINGS: No hydrocephalus. Heterogeneously enhancing 3.7 x 3.5 x 2.8 cm mass in the right cerebellar hemisphere with significant surrounding T2 hyperintensity suggesting vasogenic edema. The mass abuts the tentorium. There is resulting right to left midline shift of the cerebrum. There is effacement of the fourth ventricle. No downward tonsillar herniation. This mass demonstrates restricted diffusion. No evidence of acute ischemia. No hemorrhage. No extra-axial fluid collection. T2 skull base flow voids preserved. Polypoid mucosal thickening in the bilateral maxillary sinuses. Bone marrow signal intensity within the calvarium within normal limits. IMPRESSION: 1. 3.7 cm mass in the right cerebellar hemisphere most compatible with a metastatic lesion. No additional lesions. No acute intracranial pathology. Electronically signed by: Carlos Frey M.D. 07/18/2017 5:49 PM Dictated Date/Time: 07/18/2017 5:40 PM
[2017-07-18 19:41] VITALS: BP 168/86; PULSE 94; TEMP 36.7; O2SAT 93
== END 2017-07-18 19:42 | disposition short-term general hospital (02) ==
LOC: C.EDB 12:46 → C.EDC 19:42
DX: R22.0 Localized swelling, mass and lump, head (principal); R42 Dizziness and giddiness; R47.01 Aphasia; Z79.899 Other long term (current) drug therapy; Z85.118 Personal history of other malignant neoplasm of bronchus and lung; F25.9 Schizoaffective disorder, unspecified; Z87.891 Personal history of nicotine dependence

== ENCOUNTER → 2017-10-17 | Outpatient (CLI) | payer OTHER ==
[~2017-10-17] MED LIST changes: +AMOX875T PO; -ASPI81TA28 PO; +BUSP15TA70 PO; -CLON0.5T3 PO; +ENOXAPARIN SQ; +HYDR-5688 PO; +LEVO-18 PO; +SENN8.6T7 PO
[2017-10-17 14:24] VITALS: BP 118/80; PULSE 107; TEMP 36.9; O2SAT 95
--- NOTE | 2017-10-17 15:21 | Radiation Oncology Follow-Up ---
Radiation Oncology Follow-Up Date of Visit Oct 17, 2017. Reason For Visit One-month follow-up Radiation Completion Date SBRT Brain - 09/11/17 Lung - 12/25/15 Diagnosis (1) Cancer of lower lobe of left lung Status: Chronic Onset Date: 10/21/2015 Location: Brain metastasis Histology Subtype: Adenocarcinoma Stage: IV Permanent Comment: STAGING: Lung, left lower lobe, adenocarcinoma, [id number], stage IIIB Status post abdominal aortic aneurysm repair follow-up CAT scan 09/29/2015 revealing a lung nodule Status post bronchoscopy and biopsy 10/21/2015 Adenocarcinoma Status post completion of combined radiation and chemotherapy Radiation completed 12/25/2015 received 6000 cGy Suspicion of recurrence in the left perihilar area Status post palliative chemotherapy with Taxol and carboplatin Finding of a right cerebellar mass Status post resection June 2017 Recheck PET scan August 09, 2017 showing progressive disease in the left hilum as well as right lower lobe. Plan for systemic chemotherapy in regards to progression of disease. Status post stereotactic brain treatment completed September 11, 2017. He received 2100 cGy. Last Edited By: Margo Felipe on Sep 18, 2017 15:01 History of Present Illness Mr. Villela presents with metastatic lung cancer to the brain with locally advanced progressive disease involving the left lung and hilum. The patient was previously treated with chemoradiation therapy initially which completed in 2015 followed by palliative chemotherapy for progressive disease in 2017. The patient's disease in the left hilum and left lung has continued to progress causing some left-sided chest wall pain which led to the patient's recent admission to the hospital. Additionally, the patient was recently diagnosed with metastatic disease to the brain and underwent a resection of a cerebellar metastasis. Dr. Schulte has asked for our input regarding palliative local radiation therapy to the left hilum and chest for reduction of symptoms as well as consideration of input regarding adjuvant radiation therapy to the cerebellar metastasis. Status post completion of stereotactic radiation therapy to the brain September 11, 2017. He received 2100 cGy. Interim History He has been doing well over this past month. He did not develop any side effects from treatment. He denies any fatigue. He had no change in vision. He has had no issues with nausea. He denies headaches. He had no complaint of hair loss. He has seen Dr. Schulte in follow-up and she did order an MRI of the brain. That was performed on September 22, 2017. Allergies Coded Allergies: Ezetimibe (Verified Allergy, Mild, Unknown , 08/11/17) Simvastatin (Verified Allergy, Mild, Unknown , 08/11/17) Home Medications Scheduled Buspirone Hcl (Buspar), 15 MG PO BID Divalproex Sodium (Depakote), 500 MG PO HS Divalproex Sodium (Depakote), 250 MG PO QAM Levothyroxine Sodium (Levothyroxine Sodium), 1 TAB PO QAM Olanzapine (Zyprexa), 20 MG PO HS Omeprazole (Prilosec), 20 MG PO HS Sennosides-Docusate Sodium (Senokot S), 1 TAB PO DAILY Review of Systems Gastrointestinal: Symptoms: WNL Oral: Symptoms: No Problems Respiratory: Symptoms: WNL, SOB With Exertion Urinary: Symptoms: WNL Skin: Symptoms: Faint Erythema Additional Notes: He completed a distress management report and answer "no" to all questions. Physical Exam Vital Signs Date Time Temp Pulse Resp B/P (MAP) Pulse Ox O2 Delivery O2 Flow Rate FiO2 10/17/17 14:24 36.9 107 22 118/80 95 ECOG Performance Status: 0 Fatigue: None General Appearance: no apparent distress Eyes: normal inspection, PERRL, EOMI ENT: normal ENT inspection, hearing grossly normal, pharynx normal Respiratory/Chest: no respiratory distress, no accessory muscle use, + decreased breath sounds (On the left), + rhonchi (On the left with improvement after cough) Cardiovascular: regular rate, rhythm, no gallop, no murmur Extremities: no pedal edema Neurologic/Psychiatric: accountant II-XII nml as tested, no motor/sensory deficits, alert, + pertinent finding (Flat affect) Pain Management Patient Reports Pain: No Initial Pain Intensity: 0.0 Pain Management Plan He denies pain therefore requires no pain management. Laboratory Laboratory Results: not applicable Pathology Pathology Results: were reviewed, and pertinent findings noted in HPI Imaging Imaging Studies: were reviewed, and pertinent findings noted below Imaging Comments 09/22/2017 9:14 AM - Interface, Rad In Narrative EXAM MRI BRAIN W WO CONTRAST- 09/13/2017 5:14 pm HISTORY lung cancer brain metastasis s/p surgery and receiving post-op RT, headache, please evaluate COMPARISON MRI brain dated 07/21/2017 TECHNIQUE Multiplanar, multisequence magnetic resonance imaging of the brain was performed before and after the administration of intravenous contrast. FINDINGS Postoperative changes of right occipital craniotomy for resection of metastatic lesion are again noted with decreased edema and mass effect. Dural enhancement is likely postoperative. Parenchymal enhancement surrounding the margins of the resection cavity and adjacent superior cerebellum largely corresponds to postoperative restricted diffusion and likely, at least predominantly, represents enhancing postoperative ischemic change. There is no evidence of pseudomeningocele. No new enhancing lesions are identified. There are otherwise no significant interval changes compared to prior examination. Mild generalized volume loss is again appreciated. There is no evidence of acute ischemic infarction, acute intracranial hemorrhage, hydrocephalus, or air or new extra-axial fluid collection. Expected major intracranial vascular flow voids are preserved. Mild mucosal thickening is noted in the paranasal sinuses with mucous retention cysts in the maxillary sinuses. There is trace fluid in the mastoid air cells. IMPRESSION Evolving postsurgical changes of right occipital craniotomy for tumor resection with likely postoperative-related enhancement in the right posterior fossa. There is no evidence of pseudomeningocele, and no new intracranial lesions or mass effect are identified. Assessment & Plan The patient was seen and examined by Dr. Mcknight. The MRI of the brain was reviewed. He will continue follow-up with his primary care provider and medical oncology. Recheck scanning per medical oncology. He will be continuing on treatment with keytruda. We asked him to return to our office in 3 months. Assessment & Plan (Attending) I agree with note created by Margo Felipe PA-C. I reviewed the patient's chart and information with her. I have examined and evaluated the patient. I reviewed relevant clinical information and answered the patient's and/or family' s questions. ACCOUNTANT Total Time In Follow-Up I spent 20 minutes speaking to the patient in performing examination. I spent 15 minutes reviewing information and completing this note. AK Total Time (Attending) In Follow-Up I spent 15 minutes examining and counseling the patient. ACCOUNTANT Copy To Hali Schulte MD; Ben Watkins D.O.
== END | disposition home or self-care (01) ==
LOC: C.ONC 14:14
PROVIDERS: ATTEND Physician Assistant Medical
DX: Z08 Encounter for follow-up examination after completed treatment for malignant neoplasm (principal); Z92.3 Personal history of irradiation; Z85.118 Personal history of other malignant neoplasm of bronchus and lung

== ENCOUNTER 2018-03-08 08:06 | Inpatient (IN) ==
--- NOTE | 2018-03-08 08:45 | Emergency Department Note ---
History of Present Illness General Chief complaint: Bleeding Stated complaint: SPITTING UP BLOOD - CANCER PT Time Seen by Provider: 03/08/18 08:12 History of Present Illness Maximum Pain Intensity: 0 This 57-year-old male with a history of lung cancer with metastatic disease to multiple areas presents the ER with chief complaint of coughing up blood at 6: 30 AM this morning. The patient states he only coughed up the blood on one occasion but now his throat feels "wet". The patient denies any chest pain or shortness of breath. Patient denies any wheezing. The patient is currently having chemotherapy or immunotherapy. Last dose was 2-1/2 weeks ago. The patient is scheduled today for his first radiation therapy treatment to his hip. The patient is followed at [facility]. Home Medications Home Medications Medication Instructions Recorded Confirmed Type buspirone 15 mg PO BID 01/25/18 03/08/18 History divalproex [Depakote] 250 mg PO QAM 01/25/18 03/08/18 History divalproex [Depakote] 500 mg PO HS 01/25/18 03/08/18 History levothyroxine 150 mcg PO QAM 01/25/18 03/08/18 History olanzapine [Zyprexa] 20 mg PO HS 01/25/18 03/08/18 History omeprazole 20 mg PO QAM 01/25/18 03/08/18 History enoxaparin 90 mg SUBCUT BID 03/08/18 03/08/18 History tramadol 50 mg PO BID 03/08/18 03/08/18 History Allergies Allergy/AdvReac Type Severity Reaction Status Date / Time ezetimibe Allergy Mild TOLD BY Verified 03/08/18 08:55 NOT TO TAKE simvastatin Allergy Mild Unknown Verified 03/08/18 08:55 Past Med/Surg History Medical History Anxiety Chronic kidney disease STAGE III Depression GERD (gastroesophageal reflux disease) History of lung cancer WITH METS TO BRAIN AND BONE Hypothyroidism Pulmonary embolism SUMMER 2017 Surgical History History of bronchoscopy BIOPSY OF LLL FOR STAGING History of craniotomy FOR REMOVAL OF CANCER History of surgery AAA REPAIR, AND STENTS History of surgery RT ANKLE ORIF/REPAIR Social History Current Living Situation: Alone Feels Safe at Home: Yes Smoking Status: Former smoker Tobacco Type: cigarettes Cigarettes per Day: QUIT 2.5 YEARS AGO. HX OF 1PPD X35 YEARS. Second Hand Exposure: No Hx Alcohol Use: No Hx Substance Use: No Beliefs That Will Affect Care: None Preferred Language: [place] Communication Ability: Effective Visual Impairment: No Limitations Review of Systems A total of 10 systems reviewed and were otherwise negative Physical Exam Vital Signs Vital Signs - 24 hr 03/08/18 08:10 03/08/18 08:53 03/08/18 08:54 Temperature 37.0 C Temperature Source Oral Sepsis Recent Fever Within 48 Hours No Sepsis Action Taken by Nursing No Action Required Pulse Rate 110 H Pulse Rate [Left Finger] Respiratory Rate 20 Respiratory Effort / Characteristics Non-Labored Respiratory Depth Normal Respiratory Pattern Regular Blood Pressure 126/74 Blood Pressure [Left Arm] Blood Pressure Mean 91 Blood Pressure Mean [Left Arm] Pulse Oximetry 98 88 L 88 L Oxygen Delivery Method Room Air Room Air Room Air Oxygen Flow Rate 0 03/08/18 09:49 Temperature Temperature Source Sepsis Recent Fever Within 48 Hours Sepsis Action Taken by Nursing Pulse Rate Pulse Rate [Left Finger] 97 H Respiratory Rate 20 Respiratory Effort / Characteristics Respiratory Depth Respiratory Pattern Blood Pressure Blood Pressure [Left Arm] 105/84 Blood Pressure Mean Blood Pressure Mean [Left Arm] 91 Pulse Oximetry 96 Oxygen Delivery Method Nasal Cannula Oxygen Flow Rate 2 GENERAL: 49-year-old white male appears in no acute distress. MENTAL Status: Alert and oriented x3. EYES: PERRLA. EOMs intact. EARS: Canals clear. TMs without fluid level noted. NECK: Supple, no lymphadenopathy noted. No carotid bruits noted. LUNGS: Clear auscultation without wheezes rales or rhonchi. CARDIAC: Regular rate and rhythm without murmur. Pulses is full and equal throughout. ABDOMEN: Positive bowel sounds all 4 quadrants. Soft, nontender to palpation without organomegaly or masses. NEURO: Grossly intact. Course Administered Medications Ioversol (Optiray 320 100ml) 95 ml IV ONCE PRN PRN Reason: Interaction Checking Stop: 03/12/18 09:05 Last Admin: 03/08/18 09:07 Dose: 95 ml Medical Decision Making Differential Diagnosis Pneumonia, tuberculosis, bleeding neoplasm, invasion of bronchus due to metastatic disease. Medical Records Attestation: I reviewed the patient's medical records. Home Medications Current Medication List: was personally reviewed by me Laboratory Data Attestation: I reviewed the patient's lab results. Result diagrams: 03/08/18 08:38 03/08/18 08:38 Lab Results 03/08/18 03/08/18 03/08/18 Range/Units 08:38 08:38 08:38 WBC 0.91 L* (4.8-10.8) K/uL RBC 3.47 L (4.7-6.1) M/uL Hgb 10.4 L (14.0-18.0) g/dL POC Hgb (14.0-18.0) g/dl Hct 32.5 L (42-52) % POC Hct (42-52) % MCV 93.7 (80-100) fL MCH 30.0 (25-34) pg MCHC 32.0 (32-36) g/dL RDW Std Deviation 48.9 H (36.4-46.3) fL RDW Coeff of Rebel 14.3 (11.5-14.5) % Plt Count 177 (130-400) K/uL MPV 10.1 (7.4-10.4) fL Immature Gran % (Auto) 0.0 % Neut % (Auto) 9.9 % Lymph % (Auto) 69.2 % [place] % (Auto) 13.2 % Eos % (Auto) 6.6 % Baso % (Auto) 1.1 % Immature Gran # (Auto) 0.00 (0.00-0.02) K/uL Neut # (Auto) 0.09 L* (1.4-6.5) K/uL Lymph # (Auto) 0.63 L (1.2-3.4) K/uL [place]on # (Auto) 0.12 (0.11-0.59) K/uL Eos # (Auto) 0.06 (0-0.5) K/uL Baso # (Auto) 0.01 (0-0.2) K/uL Hyposegmented Neuts 1+ Tear Drop Cells 1+ Ovalocytes 1+ PT 10.5 (9.0-12.0) Seconds INR 1.0 (0.9-1.1) POC Sodium (135-144) mEq/L Sodium 137 (136-145) mmol/L POC Potassium (3.3-5.0) mEq/L Potassium 3.7 (3.5-5.1) mmol/L POC Chloride (101-112) mEq/L Chloride 106 (98-107) mmol/L Carbon Dioxide 26 (21-32) mmol/L POC Total CO2 (24-31) mEq/l Anion Gap 5.0 (3-11) POC Anion Gap (16-25) mmol/L POC BUN (7-18) mg/dl BUN 14 (7-18) mg/dl Creatinine 1.41 H (0.6-1.4) mg/dl POC Creatinine (0.6-1.3) mg/dl Est Cr Clr Drug Dosing 73.4 ml/min Est GFR ( Amer) 63.2 Est GFR (Non-Af Amer) 54.5 BUN/Creatinine Ratio 9.9 L (10-20) Glucose 100 H (70-99) mg/dl POC Glucose (other) (70-99) mg/dl Calcium 8.1 L (8.5-10.1) mg/dl POC Ioniz Calcium Nolan (1.12-1.32) mmol/l Total Bilirubin 0.3 (0.2-1) mg/dl AST 13 L (15-37) U/L ALT 21 (12-78) U/L Alkaline Phosphatase 60 (45-117) U/L Total Protein 6.5 (6.4-8.2) gm/dl Albumin 2.5 L (3.4-5.0) gm/dl Globulin 4.0 (2.5-4.0) gm/dl Albumin/Globulin Ratio 0.6 L (0.9-2) 03/08/18 Range/Units 08:42 WBC (4.8-10.8) K/uL RBC (4.7-6.1) M/uL Hgb (14.0-18.0) g/dL POC Hgb 10.2 L (14.0-18.0) g/dl Hct (42-52) % POC Hct 30 L (42-52) % MCV (80-100) fL MCH (25-34) pg MCHC (32-36) g/dL RDW Std Deviation (36.4-46.3) fL RDW Coeff of Rebel (11.5-14.5) % Plt Count (130-400) K/uL MPV (7.4-10.4) fL Immature Gran % (Auto) % Neut % (Auto) % Lymph % (Auto) % [place] % (Auto) % Eos % (Auto) % Baso % (Auto) % Immature Gran # (Auto) (0.00-0.02) K/uL Neut # (Auto) (1.4-6.5) K/uL Lymph # (Auto) (1.2-3.4) K/uL [place]on # (Auto) (0.11-0.59) K/uL Eos # (Auto) (0-0.5) K/uL Baso # (Auto) (0-0.2) K/uL Hyposegmented Neuts Tear Drop Cells Ovalocytes PT (9.0-12.0) Seconds INR (0.9-1.1) POC Sodium 139 (135-144) mEq/L Sodium (136-145) mmol/L POC Potassium 3.7 (3.3-5.0) mEq/L Potassium (3.5-5.1) mmol/L POC Chloride 104 (101-112) mEq/L Chloride (98-107) mmol/L Carbon Dioxide (21-32) mmol/L POC Total CO2 24 (24-31) mEq/l Anion Gap (3-11) POC Anion Gap 15.0 L (16-25) mmol/L POC BUN 12 (7-18) mg/dl BUN (7-18) mg/dl Creatinine (0.6-1.4) mg/dl POC Creatinine 1.4 H (0.6-1.3) mg/dl Est Cr Clr Drug Dosing ml/min Est GFR ( Amer) Est GFR (Non-Af Amer) BUN/Creatinine Ratio (10-20) Glucose (70-99) mg/dl POC Glucose (other) 99 (70-99) mg/dl Calcium (8.5-10.1) mg/dl POC Ioniz Calcium Nolan 1.07 L (1.12-1.32) mmol/l Total Bilirubin (0.2-1) mg/dl AST (15-37) U/L ALT (12-78) U/L Alkaline Phosphatase (45-117) U/L Total Protein (6.4-8.2) gm/dl Albumin (3.4-5.0) gm/dl Globulin (2.5-4.0) gm/dl Albumin/Globulin Ratio (0.9-2) Imaging Data Attestation: I personally reviewed and interpreted this imaging study as follows : My Impression: Pneumonitis noted at the right base Radiologist's Impression: CHEST CT WITH CONTRAST CT DOSE: 760.57 mGy.cm HISTORY: Acute hemoptysis with history of lung cancer. Coughing up blood/ history lung cancer TECHNIQUE: Multiaxial CT images of the chest were performed following the intravenous administration of contrast. A dose lowering technique was utilized adhering to the principles of ALARA. COMPARISON: PET CT 02/07/2018. FINDINGS: No dominant thyroid nodule. Prominent 8 mm subcarinal lymph node appears unchanged. No new adenopathy identified. Small pericardial effusion is unchanged. Heart is normal in size. No thoracic aortic aneurysm or dissection. Patency of the imaged great vessels. Left subclavian Emqsct-j-[id number] catheter distal tip terminates about the inferior SVC. The opacified pulmonary arterial tree demonstrates no focal filling defects. Trace left pleural effusion has decreased in size from comparison. No pneumothorax. Unchanged pleural parenchymal scarring about the right perihilar distribution and medial aspect of the right upper lobe. There is a bibasilar left greater than right centrilobular groundglass and consolidative opacities. Additionally, large amount of secretions are noted about the trachea bronchial tree, notably within the left mainstem bronchus, segmental and subsegmental branches of the left lower lobe. Mild left lung base bronchial wall thickening. Left hilar/left lower lobe infiltrative spiculated irregular mass measures approximately 5.5 x 4.8 cm in AP and transverse dimension, previously measuring approximately 5.4 x 4.6 cm on study from 02/07/2018. Pleural-based nodules of the left lower lobe measuring up to 7 mm not significantly changed. Narrowing of the distal left mainstem bronchus and left lower lobe bronchi secondary to the mass. Additionally, there is narrowing of the segmental and subsegmental branches of the pulmonary arterial tree within the left lower lobe. No acute processes of the imaged upper abdomen. Soft tissues are unremarkable. The bones appear intact. There are no suspicious lytic or blastic bony lesions identified. IMPRESSION: 1. Spiculated irregular and infiltrative left perihilar and left lower lobe mass measuring up to 5.5 cm appears generally unchanged from comparison PET/CT 02/07/2018 compatible with patient's known primary bronchogenic carcinoma. 2. Trace left pleural effusion, decreased in size from comparison. 3. Unchanged size of the pleural-based nodules about the left lower lobe suggestive of metastasis. 4. Left hilar mass causes narrowing of the bronchi about the left lower lobe. Associated tracheobronchial secretions are noted in conjunction with findings of postobstructive pneumonitis about the left lung base. Additional less extensive ill-defined centrilobular groundglass opacities about the right lung base are suspicious for aspiration pneumonitis. 5. No new adenopathy. 6. Additional findings as above. Electronically signed by: Mehrdad Amaya M.D. 03/08/2018 9:19 AM Blood Pressure Blood Pressure Findings: Normal blood pressure MDM Narrative The patient was evaluated. Venous access was made through his a port. Point of care H&H and renal profile were obtained. CBC and differential, renal profile, LFTs, coags were ordered. CT of the chest with IV contrast was ordered interpreted by the radiologist and myself as above with findings suggestive of possible right aspiration pneumonia and slightly larger left hilar mass. Labs are reviewed. The patient's H&H is stable. The patient's white count is 0.9 consistent with his immunocompromised state. The patient was independently evaluated by Dr. Banda who agrees with treatment plan. The patient was given Zosyn, cefepime and vancomycin IV. Blood cultures were ordered. Dr. Norman was consulted for admission. Impression & Plan Cancer of lower lobe of left lung, Pneumonitis Discharge Plan Visit Data Chief Complaint: Bleeding Stated Complaint: SPITTING UP BLOOD - CANCER PT ED Provider: Everardo Banda ED Midlevel Provider: Maria Eugenia Reynolds Discharge Problem: Cancer of lower lobe of left lung, Pneumonitis Patient Disposition: Being Evaluated by Hospitalist Condition: Good Forms Stand Alone Forms: My [facility], Important Visit Information Prescriptions Prescriptions: No Action tramadol 50 mg tablet 50 mg PO BID RF: 0 enoxaparin 100 mg/mL syringe 90 mg subcut BID RF: 0 divalproex [Depakote] 250 mg Tablet,Delayed Release (Dr/Ec) 250 mg PO QAM RF: 0 divalproex [Depakote] 500 mg Tablet,Delayed Release (Dr/Ec) 500 mg PO HS RF: 0 omeprazole 20 mg Capsule,Delayed Release(Dr/Ec) 20 mg PO QAM RF: 0 olanzapine [Zyprexa] 20 mg Tablet 20 mg PO HS RF: 0 buspirone 15 mg Tablet 15 mg PO BID RF: 0 levothyroxine 150 mcg Capsule 150 mcg PO QAM RF: 0 Referrals Referrals: Ben Watkins DO [Primary Care Provider] -
[2018-03-08 08:54] LABS: iSTAT Hemoglobin 10.2 g/dl (14.0-18.0); iSTAT Ionized Calcium 1.07 mmol/l (1.12-1.32)
[2018-03-08] MEDS ORDERED: IOVERSOL 100ml IV PRN (09:06)
[2018-03-08 09:13] LABS: Prothrombin Time 10.5 Seconds (9.0-12.0)
[2018-03-08 09:18] LABS: Hematocrit (blood only) 32.5 % (42-52); Hemoglobin 10.4 g/dL (14.0-18.0); Mean Corpuscular Volume 93.7 fL (80-100); Mean Platelet Volume 10.1 fL (7.4-10.4); Platelet Count 177 K/uL (130-400); RDW Coefficient of Variation 14.3 % (11.5-14.5); RDW Standard Deviation 48.9 fL (36.4-46.3); Red Blood Count 3.47 M/uL (4.7-6.1); White Blood Count 0.91 K/uL (4.8-10.8)
[2018-03-08 09:19] LABS: Albumin Level 2.5 gm/dl (3.4-5.0); BUN Creatinine Ratio 9.9 (10-20); Calcium 8.1 mg/dl (8.5-10.1); Creatinine Clr Calc Pharmacy 73.4 ml/min; Est GFR (African American) 63.2; Est GFR (Non-African American) 54.5; Potassium 3.7 mmol/L (3.5-5.1)
[2018-03-08 09:22] LABS: Albumin Globulin Ratio 0.6 (0.9-2); Bilirubin,Total 0.3 mg/dl (0.2-1); Total Protein 6.5 gm/dl (6.4-8.2)
--- NOTE | 2018-03-08 09:22 | CT Scan Report ---
CHEST CT WITH CONTRAST CT DOSE: 760.57 mGy.cm HISTORY: Acute hemoptysis with history of lung cancer. Coughing up blood/history lung cancer TECHNIQUE: Multiaxial CT images of the chest were performed following the intravenous administration of contrast. A dose lowering technique was utilized adhering to the principles of ALARA. COMPARISON: PET CT 02/07/2018. FINDINGS: No dominant thyroid nodule. Prominent 8 mm subcarinal lymph node appears unchanged. No new adenopathy identified. Small pericardial effusion is unchanged. Heart is normal in size. No thoracic aortic ane urysm or dissection. Patency of the imaged great vessels. Left subclavian Nbbesg-d-Ggvo catheter dist al tip terminates about the inferior SVC. The opacified pulmonary arterial tree demonstrates no focal filling defects. Trace left pleural effusion has decreased in size from comparison. No pneumothorax. Unchanged pleural parenchymal scarring about the right perihilar distribution and medial aspect of the right upper lob e. There is a bibasilar left greater than right centrilobular groundglass and consolidative opacities . Additionally, large amount of secretions are noted about the trachea bronchial tree, notably within the left mainstem bronchus, segmental and subsegmental branches of the left lower lobe. Mild left joseph ng base bronchial wall thickening. Left hilar/left lower lobe infiltrative spiculated irregular mass measures approximately 5.5 x 4.8 cm in AP and transverse dimension, previously measuring approximatel y 5.4 x 4.6 cm on study from 02/07/2018. Pleural-based nodules of the left lower lobe measuring up to 7 mm not significantly changed. Narrowing of the distal left mainstem bronchus and left lower lobe b ronchi secondary to the mass. Additionally, there is narrowing of the segmental and subsegmental bran ches of the pulmonary arterial tree within the left lower lobe. No acute processes of the imaged upper abdomen. Soft tissues are unremarkable. The bones appear intac t. There are no suspicious lytic or blastic bony lesions identified. IMPRESSION: 1. Spiculated irregular and infiltrative left perihilar and left lower lobe mass measuring up to 5.5 cm appears generally unchanged from comparison PET/CT 02/07/2018 compatible with patient's known prim driss bronchogenic carcinoma. 2. Trace left pleural effusion, decreased in size from comparison. 3. Unchanged size of the pleural-based nodules about the left lower lobe suggestive of metastasis. 4. Left hilar mass causes narrowing of the bronchi about the left lower lobe. Associated tracheobronc hial secretions are noted in conjunction with findings of postobstructive pneumonitis about the left lung base. Additional less extensive ill-defined centrilobular groundglass opacities about the right lung base are suspicious for aspiration pneumonitis. 5. No new adenopathy. 6. Additional findings as above. Electronically signed by: Mehrdad Amaya M.D. 03/08/2018 9:19 AM
[2018-03-08 09:27] LABS: Basophils # (auto) 0.01 K/uL (0-0.2); Basophils % (auto) 1.1 %; Eosinophils # (auto) 0.06 K/uL (0-0.5); Eosinophils % (auto) 6.6 %; Lymphocytes # (auto) 0.63 K/uL (1.2-3.4); Lymphocytes % (auto) 69.2 %; Monocytes # (auto) 0.12 K/uL (0.11-0.59); Monocytes % (auto) 13.2 %; Neutrophils # (auto) 0.09 K/uL (1.4-6.5); Neutrophils % (auto) 9.9 %; Ovalocytes 1+; Tear Drop Cells 1+
[2018-03-08] MEDS ORDERED: VANCOMYCIN CONSULT ACTIVE PRN (09:46)
[2018-03-08] MEDS ORDERED: VANCOMYCIN HCL 2,250 MG in SODIUM CHLORIDE 0.9% 500 ML IV ONE (09:46)
[2018-03-08] MEDS ORDERED: PIPERACILLIN/TAZOBACTAM 4.5 GM/120 ML BAG IV ONE (09:46)
[2018-03-08] MEDS ORDERED: PIPERACILL/TAZOBAC CONSULT ACTIVE PRN (09:46)
[2018-03-08] MEDS ORDERED: CEFEPIME 1,000 MG in SYRINGE 0 ML IV STA (09:48)
--- NOTE | 2018-03-08 09:55 | Emergency Department Note ---
Entered by Rogelio Guevara acting as a scribe for Everardo Banda MD ED Visit Note The patient was seen and examined with Miranda CAMERON, [facility] Emergency Department [employer] Drawer. We discussed the case and treatments ordered, reviewed the results, and determine the disposition. Please refer to the PA's note for additional details. I have been directly involved with the management and disposition as well as independently evaluated the patient as documentation in this note. The patient is neutropenic. He has a post obstructive duodenitis. He also has hemoptysis. Hemodynamically is currently stable. He was recently in the hospital last month. The patient was covered for healthcare acquired infection with cefepime, Zosyn and vancomycin. [facility] consulted and was admitted. . The scribe's documentation has been prepared under my direction and personally reviewed by me in its entirety. I confirm that the note above accurately reflects all work, treatment, procedures, and medical decision making performed by me.
[2018-03-08] MEDS ORDERED: MoRPHine SULFATE 2 MG/ML CARP IV PRN (13:57)
[2018-03-08] MEDS ORDERED: ONDANSETRON INJ 2 MG/ML 2 ML VIAL IV PRN (13:57)
[2018-03-08] MEDS ORDERED: ENOXAPARIN 100 MG/1ML SYR SQ SCH (13:57)
[2018-03-08] MEDS ORDERED: ACETAMINOPHEN 325 MG TAB PO PRN (13:57)
--- NOTE | 2018-03-08 15:11 | History & Physical Report ---
Date of Service March 08, 2018 Assessment & Plan (1) Hemoptysis: Secondary to lung cancer, plus or minus pneumonia, antibiotics have been started, will also place the patient on steroids and nebulizers. We will have pulmonary and hematology oncology see the patient as well. He will go down for XRT tomorrow if stable. He is to receive palliative radiation. (2) Pneumonia: Start antibiotics, pulmonary will be on case. (3) Cancer of lower lobe of left lung: Patient is on chemotherapy, sees Dr. Schulte, was to start XRT today, I spoke with the radiation oncologist and he would like to start palliative radiation tomorrow if the patient is stable. (4) Leukopenia: We will monitor daily labs (5) Tachycardia: Secondary to acute process of hemoptysis and pneumonia (6) Acute pulmonary embolism: Patient was on full dose Lovenox on admission secondary to PE (7) Hypothyroidism: Continue levothyroxine (8) GERD (gastroesophageal reflux disease): Proton pump inhibitor (9) Obesity: No DVT prophylaxis secondary to hemoptysis Hopefully will have XRT tomorrow Plans to travel to [facility] at the end of the month We will follow along with radiation oncologist, hematology/oncologist, and pulmonary We will place SCDs History of Present Illness Chief Complaint: Hemoptysis Primary Care Provider: Ben Watkins, 57-year-old male with a past medical history of lung cancer with metastases to the bone and brain, obesity, pulmonary embolism, hyperlipidemia, GERD, hypothyroidism, AAA who said he felt some trickling of liquid in his throat last night and this morning when he woke up he coughed up a copious amount of blood into his sink in the bathroom. He came to the emergency room and was found to have hemoptysis. He takes full dose Lovenox twice daily for pulmonary embolism that he had recently. He is under the care of Dr. Schulte from hematology oncology and Dr. Watkins his primary care physician. He has received chemo and was about to receive radiation today. On scan his mass seems to be a little bit larger in his left lung a pneumonia was found as well. ROS-No Headache, No Visual Changes, No Fever, No Chills, No Neck Pain or Stiffness, No Chest Pain, No Palpitations, No SOB, No PANCHAL, No Cough, No Sputum, positive wheezing, No Abdominal Pain, No Diarrhea, No Hematemesis, No Hemoptysis , No Unexpected Weight Loss, No Flank pain, No Melena, No Hematochezia, No Frequency, No Urgency, No Burning, No Hematuria, No Rashes, No Diaphoresis. Appetite is Normal, positive hemoptysis, Physical Exam Gen-AAO x 3, NAD, Afebrile, obese Head-NCAT, EOMI, PERRLA, Anicteric Sclera, No Posterior Pharyngeal Erythema Neck-Supple, No JVD, No Thyromegaly, No Masses, No LAD, No Bruits Lungs- Rales in left upper lobe, No Rhonchi, No Wheezing, No Crepitus, positive hemoptysis Chest-No S4, +S1, +S2, No S3, No Murmurs, No Rubs, No Gallops, No Ectopy Abdomen-Soft, Bowel Sounds Present, Non Tender, Non Distended, No Hepatomegaly, No Splenomegaly, No Palpable Masses, No Rebound, No Rigidity, No Guarding Musculoskeletal-Full Range of Motion Bilaterally, No CVAT Extremities-No Cyanosis, No Clubbing, No Edema Nuero-Cranial Nerves II-XII grossly intact, Motor WNL, DTRs WNL, Strength WNL, No Focal Psych-Normal Mood PMH-lung cancer with bone and brain metastases, Obesity, PE, Hyperlipidemia, hypothyroidism, AAA, GERD PSH-brain surgery, 3 AAA stents, foot surgery, tonsil and adenoids been removed. FH-mother is alive and healthy, father of motor vehicle accident, one brother and 5 sisters are all alive and healthy, he has no children SH-no alcohol, quit tobacco 2-1/2 years ago, was a pack-a-day smoker for 35 years, he is disabled, single Meds reviewed and Reconciled Labs Reviewed Allergies Allergy/AdvReac Type Severity Reaction Status Date / Time simvastatin Allergy Mild Unknown Verified 03/08/18 08:55 ezetimibe AdvReac Mild TOLD BY Verified 03/08/18 14:46 NOT TO TAKE Home Medications Home Medications Medication Instructions Recorded Confirmed Type buspirone 15 mg PO BID 01/25/18 03/08/18 History divalproex [Depakote] 250 mg PO QAM 01/25/18 03/08/18 History divalproex [Depakote] 500 mg PO HS 01/25/18 03/08/18 History levothyroxine 150 mcg PO QAM 01/25/18 03/08/18 History olanzapine [Zyprexa] 20 mg PO HS 01/25/18 03/08/18 History omeprazole 20 mg PO QAM 01/25/18 03/08/18 History enoxaparin 90 mg SUBCUT BID 03/08/18 03/08/18 History tramadol 50 mg PO BID 03/08/18 03/08/18 History Past Med/Surg History Medical History Anxiety Chronic kidney disease STAGE III Depression GERD (gastroesophageal reflux disease) History of lung cancer WITH METS TO BRAIN AND BONE Hypothyroidism Pulmonary embolism SUMMER 2017 Surgical History History of bronchoscopy BIOPSY OF LLL FOR STAGING History of craniotomy FOR REMOVAL OF CANCER History of surgery AAA REPAIR, AND STENTS History of surgery RT ANKLE ORIF/REPAIR Social History Current Living Situation: Alone Other Information That Helps Us Care for You: No Feels Safe at Home: Yes Safety Concerns: Feels Safe At This Time Smoking Status: Former smoker Do You Dip or Chew Tobacco: No Second Hand Exposure: No Tobacco Cessation Education Requested by Patient: No Hx Alcohol Use: No Hx Substance Use: No Beliefs That Will Affect Care: None Preferred Language: Cambodian Communication Ability: Effective Entrepreneurship Program Director Required: No Physical Exam 2 Vital Signs (Past 24 Hours): Last Vital Signs Temp 36.9 C 03/08/18 13:45 Pulse 108 H 03/08/18 13:58 Resp 18 03/08/18 13:45 BP 148/84 H 03/08/18 13:45 Pulse Ox 100 03/08/18 13:45 Results & Data Laboratory Results Allergies simvastatin Allergy (Mild, Verified 03/08/18 08:55) Unknown ezetimibe Adverse Reaction (Mild, Verified 03/08/18 14:46) TOLD BY MD NOT TO TAKE Height/Weight/Isolation Height 5 ft 11 in Weight 114.2 kg Chemistry 03/08/18 08:38 Sodium 137 Potassium 3.7 Chloride 106 Carbon Dioxide 26 Anion Gap 5.0 BUN 14 Creatinine 1.41 H Glucose 100 H Microbiology 03/08/18 10:10 Blood Blood Culture - Pending 03/08/18 10:11 Blood Blood Culture - Pending IMPRESSION: CT chest 1. Spiculated irregular and infiltrative left perihilar and left lower lobe mass measuring up to 5.5 cm appears generally unchanged from comparison PET/CT 02/07/2018 compatible with patient's known primary bronchogenic carcinoma. 2. Trace left pleural effusion, decreased in size from comparison. 3. Unchanged size of the pleural-based nodules about the left lower lobe suggestive of metastasis. 4. Left hilar mass causes narrowing of the bronchi about the left lower lobe. Associated tracheobronchial secretions are noted in conjunction with findings of postobstructive pneumonitis about the left lung base. Additional less extensive ill-defined centrilobular groundglass opacities about the right lung base are suspicious for aspiration pneumonitis. 5. No new adenopathy.
--- NOTE | 2018-03-08 16:03 | Pharmacy Report ---
Pharmacy Abx Dose Short Note - Date of Service March 08, 2018 - Assessment & Plan A/P 57yo M being started on vancomycin for pulm source Vancomycin 2250mg IV X1 loading dose Then Vancomycin 1500 q12 Trough ordered for 03/10/18 @0930 prior to the 4th maintenance dose Goal trough 15-20mcg/mL Pharmacy will continue to follow and will adjust dose/frequency as necessary. Thank you.
--- NOTE | 2018-03-08 16:50 | Discharge Summary ---
Date of Service March 08, 2018 Admission HPI Per Admitting Provider 57-year-old male with a past medical history of lung cancer with metastases to the bone and brain, obesity, pulmonary embolism, hyperlipidemia, GERD, hypothyroidism, AAA who said he felt some trickling of liquid in his throat last night and this morning when he woke up he coughed up a copious amount of blood into his sink in the bathroom. He came to the emergency room and was found to have hemoptysis. He takes full dose Lovenox twice daily for pulmonary embolism that he had recently. He is under the care of Dr. Schulte from hematology oncology and Dr. Watkins his primary care physician. He has received chemo and was about to receive radiation today. On scan his mass seems to be a little bit larger in his left lung a pneumonia was found as well. ROS-No Headache, No Visual Changes, No Fever, No Chills, No Neck Pain or Stiffness, No Chest Pain, No Palpitations, No SOB, No PANCHAL, No Cough, No Sputum, positive wheezing, No Abdominal Pain, No Diarrhea, No Hematemesis, No Hemoptysis , No Unexpected Weight Loss, No Flank pain, No Melena, No Hematochezia, No Frequency, No Urgency, No Burning, No Hematuria, No Rashes, No Diaphoresis. Appetite is Normal, positive hemoptysis, Physical Exam Gen-AAO x 3, NAD, Afebrile, obese Head-NCAT, EOMI, PERRLA, Anicteric Sclera, No Posterior Pharyngeal Erythema Neck-Supple, No JVD, No Thyromegaly, No Masses, No LAD, No Bruits Lungs- Rales in left upper lobe, No Rhonchi, No Wheezing, No Crepitus, positive hemoptysis Chest-No S4, +S1, +S2, No S3, No Murmurs, No Rubs, No Gallops, No Ectopy Abdomen-Soft, Bowel Sounds Present, Non Tender, Non Distended, No Hepatomegaly, No Splenomegaly, No Palpable Masses, No Rebound, No Rigidity, No Guarding Musculoskeletal-Full Range of Motion Bilaterally, No CVAT Extremities-No Cyanosis, No Clubbing, No Edema Nuero-Cranial Nerves II-XII grossly intact, Motor WNL, DTRs WNL, Strength WNL, No Focal Psych-Normal Mood PMH-lung cancer with bone and brain metastases, Obesity, PE, Hyperlipidemia, hypothyroidism, AAA, GERD PSH-brain surgery, 3 AAA stents, foot surgery, tonsil and adenoids been removed. FH-mother is alive and healthy, father of motor vehicle accident, one brother and 5 sisters are all alive and healthy, he has no children SH-no alcohol, quit tobacco 2-1/2 years ago, was a pack-a-day smoker for 35 years, he is disabled, single Meds reviewed and Reconciled Labs Reviewed Admission Exam Per Admitting Provider as above Principal Diagnosis Hemoptysis Pneumonia Lung cancer with bone and brain metastases GERD Hypothyroidism Leukopenia History of AAA History of PE Discharge Exam Same as admission exam which was done 3 hours ago Discharge Data Allergies Allergy/AdvReac Type Severity Reaction Status Date / Time simvastatin Allergy Mild Unknown Verified 03/08/18 08:55 ezetimibe AdvReac Mild TOLD BY Verified 03/08/18 14:46 NOT TO TAKE Consultations 03/08/18 10:03 ED Decision to Admit Stat 03/08/18 13:57 Consult Pulmonology Routine 03/08/18 14:22 Consult Hematology Routine 03/08/18 16:34 Burn CD for patient Stat Ordered Studies 03/08/18 08:45 CT chest w con Stat See history and physical which was done 3 hours ago Hospital Course (1) Hemoptysis: Secondary to lung cancer, plus or minus pneumonia, antibiotics have been started, will also place the patient on steroids and nebulizers. We will have pulmonary and hematology oncology see the patient as well. He will go down for XRT tomorrow if stable. He is to receive palliative radiation. (2) Pneumonia: Start antibiotics, pulmonary will be on case. (3) Cancer of lower lobe of left lung: Patient is on chemotherapy, sees Dr. Schulte, was to start XRT today, I spoke with the radiation oncologist and he would like to start palliative radiation tomorrow if the patient is stable. (4) Leukopenia: We will monitor daily labs (5) Tachycardia: Secondary to acute process of hemoptysis and pneumonia (6) Acute pulmonary embolism: Patient was on full dose Lovenox on admission secondary to PE (7) Hypothyroidism: Continue levothyroxine (8) GERD (gastroesophageal reflux disease): Proton pump inhibitor (9) Obesity: No DVT prophylaxis secondary to hemoptysis Patient was seen by pulmonary who recommended transfer to [facility] for interventional radiology evaluation. I discussed the case with the ICU doctor over at [facility] and he denied the admission I then called the hospitalist Dr. Walker who accepted the patient. Total Time Total Time Spent Total Time Spent (In Minutes): 2 hours Discharge Plan Discharge Items Patient Disposition: Transfer Acute Care Hospital Reason For Visit: HEMOPTYSIS Discharge Diagnosis: Hemoptysis Lung CA c Bone and Brain mets HLD PNA GERD Hx PE Hx AAA Condition: Critical Discharge Goals: Diagnostic testing and Improve disease control Specific Goals: IR to eval Pulm art bleed Coiling if able Activity: Per 'Additional Instructions' section Lifting: None Weightbearing: Left weightbearing and Right weightbearing Non-emergency contact: Specialist, Oncologist and Manager Order Call non-emergency contact if: you have any medication questions Diet: See below Addtl Provider Instructions: Needs IR to possibly coil his artey Prescriptions: New morphine 2 mg/mL Syringe 2 mg IV Q4 PRN (Reason: pain) 7 Days Qty: 45 RF: 0 ipratropium-albuterol 0.5 mg-3 mg(2.5 mg base)/3 mL Solution For Nebulization 3 ml NEB Q4R Qty: 180 RF: 0 ondansetron HCl (PF) 4 mg/2 mL Solution 4 mg IV Q6H PRN (Reason: nausea and vomiting) Qty: 10 RF: 0 Continue tramadol 50 mg tablet 50 mg PO BID RF: 0 divalproex [Depakote] 250 mg Tablet,Delayed Release (Dr/Ec) 250 mg PO QAM RF: 0 divalproex [Depakote] 500 mg Tablet,Delayed Release (Dr/Ec) 500 mg PO HS RF: 0 omeprazole 20 mg Capsule,Delayed Release(Dr/Ec) 20 mg PO QAM RF: 0 olanzapine [Zyprexa] 20 mg Tablet 20 mg PO HS RF: 0 buspirone 15 mg Tablet 15 mg PO BID RF: 0 levothyroxine 150 mcg Capsule 150 mcg PO QAM RF: 0 Discontinued enoxaparin 100 mg/mL syringe 90 mg subcut BID RF: 0 Stand-Alone Forms: [facility] Discharge Orders: Discharge Order (Routine); Ordered 03/08/18 Ordered By: Syd Norman Admission Data Admit Date/Time: 03/08/18 10:57 Attending Provider: Syd Norman Admit Provider: Syd Norman Primary Care Provider: Ben Watkins Other Providers: Hali Schulte ; Art Mcknight ; Beth Mccauley ; Omero Montoya ; Syd Norman Service: Telemetry
[2018-03-08] MEDS ORDERED: FILGRASTIM 480 MCG/1.6 ML VIAL SC ONE (17:30)
[2018-03-08] MEDS: ALBUT/IPRATROP 3MG/0.5MG NEB 3 ML VIAL NEB SCH ×2 (17:39→19:16)
--- NOTE | 2018-03-08 17:42 | Pulmonary Consultation ---
Date of Consultation March 08, 2018 Assessment & Plan (1) Acute pulmonary embolism: Impression: 1. Gross hemoptysis, more than 30 mL over 2 hours. 2. Non-small cell lung CA, stage IV. Ongoing chemotherapy. 3. COPD, not in exacerbation. 4. Recently diagnosed PE and kept on Lovenox. 5. Obesity. Plan: 1. Continue with broad-spectrum antibiotic. 2. Discontinue Lovenox. 3. Transfer the patient to [facility] for IR to perform angiography and coiling of bleeding bronchial artery. 4. Bronchoscopy would be helpful to map the site of the bleeding however, review of the CAT scan, it is clearly coming from the left hilar area. 5. Continue G-CSF. 6. Discussed with the hospital service, regarding the plan. Thank you for the kind referral. History of Present Illness Reason for Consultation: Hemoptysis Requesting Physician: Dr. Norman Attending Physician: Syd Norman, DO History of Present Illness Dear Dr. Norman: Thank you for the kind referral of Mr. Villela to pulmonary service. This is a 57-year-old gentleman with a history of non-small cell lung CA diagnosed in 2016 , with metastasis to the bones, has been treated with chemotherapy and radiation in the past, resulted in esophagitis as well. The patient recently started on a newer immunotherapy as he was PDL positive. His most recent treatment was 2 days ago. The patient started to have increasing shortness of breath today and yesterday and has been having cough with aidee blood in the sputum. The patient denies any chest pain, no dizziness, no gait imbalance, he denies any nausea or vomiting, no hematemesis, no bleeding from his nostrils, he has been taking Lovenox full dose due to the diagnosis of PE 3 months ago. He noted increased swelling in his lower extremities, his body weight has been stable, his appetite and oral intake has been stable. No swelling in his joints. The patient also was found to be neutropenic and was admitted to the hospital for further management. He has been followed by Dr. Schulte from oncology. Review of system apart from above was unremarkable. His past medical history as mentioned above. And family history is not contributing to his current illness. Allergies Allergy/AdvReac Type Severity Reaction Status Date / Time simvastatin Allergy Mild Unknown Verified 03/08/18 08:55 ezetimibe AdvReac Mild TOLD BY Verified 03/08/18 14:46 NOT TO TAKE Home Medications Home Medications Medication Instructions Recorded Confirmed Type buspirone 15 mg PO BID 01/25/18 03/08/18 History divalproex [Depakote] 250 mg PO QAM 01/25/18 03/08/18 History divalproex [Depakote] 500 mg PO HS 01/25/18 03/08/18 History levothyroxine 150 mcg PO QAM 01/25/18 03/08/18 History olanzapine [Zyprexa] 20 mg PO HS 01/25/18 03/08/18 History omeprazole 20 mg PO QAM 01/25/18 03/08/18 History enoxaparin 90 mg SUBCUT BID 03/08/18 03/08/18 History ipratropium-albuterol 3 ml NEB Q4R #180 ml 03/08/18 Rx morphine 2 mg IV Q4 PRN 7 Days #45 ml 03/08/18 Rx ondansetron HCl (PF) 4 mg IV Q6H PRN #10 ml 03/08/18 Rx tramadol 50 mg PO BID 03/08/18 03/08/18 History Patient History Medical History Anxiety Chronic kidney disease STAGE III Depression GERD (gastroesophageal reflux disease) History of lung cancer WITH METS TO BRAIN AND BONE Hypothyroidism Pulmonary embolism SUMMER 2017 Surgical History History of bronchoscopy BIOPSY OF LLL FOR STAGING History of craniotomy FOR REMOVAL OF CANCER History of surgery AAA REPAIR, AND STENTS History of surgery RT ANKLE ORIF/REPAIR Social History Current Living Situation: Alone Other Information That Helps Us Care for You: No Feels Safe at Home: Yes Safety Concerns: Feels Safe At This Time Smoking Status: Former smoker Do You Dip or Chew Tobacco: No Second Hand Exposure: No Tobacco Cessation Education Requested by Patient: No Hx Alcohol Use: No Hx Substance Use: No Beliefs That Will Affect Care: None Preferred Language: Serbian Communication Ability: Effective Drill Operator Required: No Review of Systems Review of systems including 10 systems has been unremarkable, except for the above. Physical Exam 2 Vital Signs (Past 24 Hours): Last Vital Signs Temp 37.2 C 03/08/18 15:42 Pulse 94 H 03/08/18 16:00 Resp 17 03/08/18 15:42 BP 123/85 03/08/18 15:42 Pulse Ox 98 03/08/18 15:42 Physical Exam: Vital signs remained stable, he has no fever, heart rate and blood pressure are stable, he is 98% on nasal cannula, he is coughing up aidee blood while I was there, appeared to be copious amount, measuring approximately 30 mL for the past 2 hours. No JVP, crackles bilaterally, S1-S2 regular rate and rhythm, abdomen is benign, edema in the periphery noted. Neurologically is nonfocal, but seems to have difficulty processing his answers. Results & Data Laboratory Results His labs showed white count of 0.9, and his ANC is less than 500. Blood chemistry was reviewed which was acceptable. BUN/creatinine slightly elevated but at baseline.
[2018-03-08] MEDS ORDERED: DEXAMETHASONE SOD PHOSPHATE 6 MG in SYRINGE 0 ML IV SCH (18:00)
--- NOTE | 2018-03-08 20:01 | Consultation ---
Date of Consultation March 08, 2018 Assessment and Plan: 57 year old male with history of PE and metastatic non small cell lung cancer on palliative chemotherapy with Taxotere admitted with gross hemoptysis Neutropenia due to chemotherapy. I discussed with Rad Onc Dr Mcknight and he will hold off on RT he received neupogen 480mg SC x1 recommend neupogen 480mcg SC daily until Absolute neutrophil count is >1000 anemia, chemorelated: monitor daily cbc, also reports hemoptysis agree with IV antibiotics for PNA bone metastasis, cancer pain: continue tramadol prn pulmonary consult appreciated. Patient agree to transfer to [facility] for further evaluation and management. lovenox discontinued on this admission due to gross hemoptysis follow up in the office upon discharge thank you for consult. also called and discussed with patient's mother. reason for consult: metastatic lung cancer History of Present Illness Reason for Consultation: metastatic lung cancer Attending Physician: Syd Norman DO History of Present Illness 57 year old male with metastatic non small cell lung cancer high PDL1 expression , brain metastasis s/p resection and RT in 2018, history of PE on lovenox, bone metastasis He had progression after immunotherapy and is on palliative chemotherapy with taxotere, C1D1 on 03/01/18. He is admitted with gross hemoptysis. Patient states that he was feeling well until last night he noticed a productive cough and sensation of phlegm in his throat. He said this morning he coughed and and noticed gross blood when he coughed. He said sink at home had a lot of blood mixed with mucus and he called his mother and came to ER. He has fatigue. He denies any abdominal pain or nausea or vomiting or diarrhea. He states he has blood in sputum when he cough, has not seen any for over past hour or so now but had some during the day. He denies fever but admit that he did not check his temperature. He states that he notice more shortness of breath on exertion He states that the pain in his hip is controlled right now with tramadol as needed he denies any headache. Allergies Allergy/AdvReac Type Severity Reaction Status Date / Time simvastatin Allergy Mild Unknown Verified 03/08/18 08:55 ezetimibe AdvReac Mild TOLD BY Verified 03/08/18 14:46 NOT TO TAKE Home Medications Home Medications Medication Instructions Recorded Confirmed Type buspirone 15 mg PO BID 01/25/18 03/08/18 History divalproex [Depakote] 250 mg PO QAM 01/25/18 03/08/18 History divalproex [Depakote] 500 mg PO HS 01/25/18 03/08/18 History levothyroxine 150 mcg PO QAM 01/25/18 03/08/18 History olanzapine [Zyprexa] 20 mg PO HS 01/25/18 03/08/18 History omeprazole 20 mg PO QAM 01/25/18 03/08/18 History enoxaparin 90 mg SUBCUT BID 03/08/18 03/08/18 History ipratropium-albuterol 3 ml NEB Q4R #180 ml 03/08/18 Rx morphine 2 mg IV Q4 PRN 7 Days #45 ml 03/08/18 Rx ondansetron HCl (PF) 4 mg IV Q6H PRN #10 ml 03/08/18 Rx tramadol 50 mg PO BID 03/08/18 03/08/18 History Patient History Medical History Anxiety Chronic kidney disease STAGE III Depression GERD (gastroesophageal reflux disease) History of lung cancer WITH METS TO BRAIN AND BONE Hypothyroidism Pulmonary embolism SUMMER 2017 Surgical History History of bronchoscopy BIOPSY OF LLL FOR STAGING History of craniotomy FOR REMOVAL OF CANCER History of surgery AAA REPAIR, AND STENTS History of surgery RT ANKLE ORIF/REPAIR Social History Current Living Situation: Alone Other Information That Helps Us Care for You: No Feels Safe at Home: Yes Safety Concerns: Feels Safe At This Time Smoking Status: Former smoker Do You Dip or Chew Tobacco: No Second Hand Exposure: No Tobacco Cessation Education Requested by Patient: No Hx Alcohol Use: No Hx Substance Use: No Beliefs That Will Affect Care: None Preferred Language: Zimbabwean Communication Ability: Effective Appliance Fixer Required: No Review of Systems as stated per HPI Physical Exam 2 Vital Signs (Past 24 Hours): Last Vital Signs Temp 37.2 C 03/08/18 15:42 Pulse 76 03/08/18 19:17 Resp 18 03/08/18 19:17 BP 123/85 03/08/18 15:42 Pulse Ox 98 03/08/18 19:17 Gen: awake and alert NAD HEENT: Anicteric, no erythema or exudate neck: supple no palpable adenopathy lungs: bilateral rhonchi CV: S1 S2 RRR Abd: obese soft NT/ND Ext: no edema neuro: alert and oriented x 3 grossly nonfocal Results & Data Laboratory Results cbc wbc 0.91 hgb 10.[address] 177 hgb 10.2 hct [address] chest 1. Spiculated irregular and infiltrative left perihilar and left lower lobe mass measuring up to 5.5 cm appears generally unchanged from comparison PET/CT 02/07/2018 compatible with patient's known primary bronchogenic carcinoma. 2. Trace left pleural effusion, decreased in size from comparison. 3. Unchanged size of the pleural-based nodules about the left lower lobe suggestive of metastasis. 4. Left hilar mass causes narrowing of the bronchi about the left lower lobe. Associated tracheobronchial secretions are noted in conjunction with findings of postobstructive pneumonitis about the left lung base. Additional less extensive ill-defined centrilobular groundglass opacities about the right lung base are suspicious for aspiration pneumonitis. 5. No new adenopathy. 6. Additional findings as above
[2018-03-08 20:22] VITALS: PULSE 82; TEMP 98.2; O2SAT 97
[2018-03-08] MEDS ORDERED: OLANZapine 20 MG TABLET PO SCH (21:00)
[2018-03-08] MEDS ORDERED: DIVALPROEX DELAY RELEASE 500 MG TAB PO SCH (21:00)
[2018-03-08] MEDS ORDERED: TRAMADOL HCL 50 MG TABLET PO SCH ×2 (21:00)
[2018-03-08] MEDS ORDERED: BusPIRone 15 MG TAB PO SCH (21:00)
[2018-03-08 21:46] VITALS: BP 148/84
[2018-03-08] MEDS ORDERED: VANCOMYCIN HCL 1,500 MG in SODIUM CHLORIDE 0.9% 500 ML IV SCH (22:00)
[2018-03-09] MEDS ORDERED: LEVOTHYROXINE SODIUM 150 MCG TABLET PO SCH (06:30)
[2018-03-09] MEDS ORDERED: DIVALPROEX DELAY RELEASE 250 MG TABEC PO SCH (09:00)
[2018-03-09] MEDS ORDERED: PANTOprazole 40 MG TAB PO SCH (09:00)
[2018-03-10] MEDS ORDERED: VANCOMYCIN TROUGH ONE (09:30)
== END 2018-03-08 22:28 | disposition short-term general hospital (02) | DRG 193 ==
LOC: ED 08:06 → 2S 10:57